=== PATIENT | female | born 1995 | race American Indian/Alaskan Native ===

== ENCOUNTER 2020-01-22 17:43 | Outpatient (REF) | payer OTHER, SELFPAY ==
[2020-01-22 18:20] LABS: COVID-19 Test Positive (Negative)
== END 2020-01-22 17:44 | disposition home or self-care (01) ==
LOC: HO.EMPCOV 17:43
PROVIDERS: Visit Provider Internal Medicine
DX: Z20.828 Contact with and (suspected) exposure to other viral communicable diseases (principal)
CPT/HCPCS: 87635; C9803

== ENCOUNTER 2020-03-18 14:34 | Outpatient (REF) | payer OTHER, SELFPAY ==
[2020-03-18 15:45] LABS: MANUAL DIFF FLAG NO
[2020-03-18 15:51] LABS: Basophils Percent Auto 0.6 % (0-2); Eosinophils Absolute Auto 0.2 X10*3/uL (0.0-0.4); Eosinophils Percent Auto 3.3 % (0-4); Hematocrit 37.3 % (37-47); Hemoglobin 11.7 g/dl (12.0-16.0); Imm Gran Abs Auto 0.02 X10*3/uL (0.00-0.03); Imm Gran Pct Auto 0.3 % (0.0-0.4); Lymphocytes Absolute Auto 2.4 X10*3/uL (1.2-4.9); Lymphocytes Percent Auto 32.8 % (20-40); Mean Corpuscular HGB Conc 31.4 g/dl (31.0-35.0); Mean Corpuscular Hemoglobin 25.9 pg (27.0-33.0); Mean Corpuscular Volume 82.7 fL (80-98); Mean Platelet Volume 10.1 fL (9.4-12.3); Monocytes Absolute Auto 0.4 X10*3/uL (0.1-1.2); Monocytes Percent Auto 6.1 % (2-11); Neutrophils Absolute Auto 4.1 X10*3/uL (2.0-8.3); Neutrophils Percent Auto 56.9 % (45-73); Platelet Count 386 X10*3/uL (160-400); Red Blood Count 4.51 X10*6/uL (4.20-5.50); Red Cell Distribution Width 13.5 % (11.0-16.0); White Blood Count 7.2 X10*3/uL (4.8-10.8)
[2020-03-18 16:11] LABS: Alanine Aminotransferase 15 U/L (0-31); Albumin Level 4.5 g/dL (3.5-5.0); Alkaline Phosphatase 60 U/L (39-117); Anion Gap 10 (12-20); Aspartate Amino Transferase 19 U/L (5-31); Bilirubin Total 0.4 mg/dL (0.0-1.0); Blood Urea Nitrogen 12 mg/dL (9-16); Calcium 9.3 mg/dL (8.4-10.2); Carbon Dioxide 26 mmol/L (22-29); Chloride 106 mmol/L (96-108); Estimated Glomerular Filt Rate > 60; Glucose Fasting 94 mg/dL (60-99); Potassium 4.2 mmol/l (3.3-5.1); Sodium 138 mmol/L (135-145); Total Protein 7.5 g/dL (6.5-8.0)
== END 2020-03-18 14:35 | disposition home or self-care (01) ==
LOC: HO.LAB 14:34
PROVIDERS: PCP Internal Medicine; Visit Provider Internal Medicine
DX: G43.909 Migraine, unspecified, not intractable, without status migrainosus (principal)
CPT/HCPCS: 36415; 80053; 85025

== ENCOUNTER 2021-08-08 08:52 | Outpatient (REF) | payer OTHER, SELFPAY ==
[2021-08-08 09:21] LABS: MANUAL DIFF FLAG NO
[2021-08-08 10:28] LABS: Basophils Percent Auto 0.5 % (0-2); Eosinophils Absolute Auto 0.4 X10*3/uL (0.0-0.4); Eosinophils Percent Auto 6.6 % (0-4); Hematocrit 39.3 % (37.0-47.0); Hemoglobin 12.3 g/dl (12.0-16.0); Imm Gran Abs Auto 0.01 X10*3/uL (0.00-0.03); Imm Gran Pct Auto 0.2 % (0.0-0.4); Lymphocytes Absolute Auto 2.6 X10*3/uL (1.2-4.9); Lymphocytes Percent Auto 43.7 % (20-40); Mean Corpuscular HGB Conc 31.3 g/dl (31.0-35.0); Mean Corpuscular Hemoglobin 26.3 pg (27.0-33.0); Mean Corpuscular Volume 84.2 fL (80.0-98.0); Mean Platelet Volume 10.5 fL (9.4-12.3); Monocytes Absolute Auto 0.5 X10*3/uL (0.1-1.2); Monocytes Percent Auto 7.6 % (2-11); Neutrophils Absolute Auto 2.4 x10*3/uL (2.0-8.3); Neutrophils Percent Auto 41.4 % (45-73); Platelet Count 319 X10*3/uL (160-400); Red Blood Count 4.67 X10*6/uL (4.20-5.50); Red Cell Distribution Width 13.1 % (11.0-16.0); White Blood Count 5.9 X10*3/uL (4.8-10.8)
[2021-08-08 11:02] LABS: Alanine Aminotransferase 17 U/L (0-31); Albumin Level 4.4 g/dL (3.5-5.0); Alkaline Phosphatase 64 U/L (39-117); Anion Gap 10 (12-20); Aspartate Amino Transferase 26 U/L (5-31); Bilirubin Total 0.6 mg/dL (0.0-1.0); Blood Urea Nitrogen 17 mg/dL (9-16); Calcium 9.4 mg/dL (8.4-10.2); Carbon Dioxide 26 mmol/L (22-29); Chloride 106 mmol/L (96-108); Cholesterol 154 mg/dL; Estimated Glomerular Filt Rate > 60; Glucose Fasting 89 mg/dL (60-99); HDL Cholesterol 52 mg/dL; LDL Cholesterol Calculated 95 mg/dl; Potassium 4.4 mmol/L (3.3-5.1); Sodium 138 mmol/L (135-145); Total Protein 7.7 g/dL (6.5-8.0); Triglycerides 37 mg/dL
== END 2021-08-08 08:53 | disposition home or self-care (01) ==
LOC: HO.LAB 08:52
PROVIDERS: PCP Internal Medicine; Visit Provider Internal Medicine
DX: Z00.00 Encounter for general adult medical examination without abnormal findings (principal); D64.9 Anemia, unspecified; J45.30 Mild persistent asthma, uncomplicated; E78.5 Hyperlipidemia, unspecified
CPT/HCPCS: 36415; 80053; 80061; 85025

== ENCOUNTER 2023-12-19 12:53 | Outpatient (AMB) | payer OTHER, SELFPAY ==
[2023-12-19 13:02] VITALS: BP 110/72; BMI 23.6
--- NOTE | 2023-12-19 13:02 | MHC.PC.OV ---
Vital Signs 12/19/23 13:02 Height 5 ft 2 in Weight 129 lb BMI 23.6 BP 110/72 Blood Pressure Location Lt brachial Position Sitting Intake Visit Reasons: annual Intake Note: Patient here for an Annual Physical Exam Councilperson Required: No Accompanied by: Self / Same As Patient Allergies No Known Allergies [No Known Allergies*] Allergy (Verified 12/19/23 13:34) Medication List - Last Reconciled 12/19/23 by Jessica Rogers MD albuterol sulfate 90 mcg/actuation 2 puffs inhalation Q6H PRN 30 days montelukast 10 mg PO BEDTIME Tobacco use date assessed: 12/19/23 Dental Screening Dental Screen Date: 12/19/23 Did you have a dental visit in the last 12 months?: Yes Did you have a dental problem in the last 6 months where you did not have access to dental care?: No Was dental information given to patient?: Patient has dentist HPI HPI Comments History of Present Illness Details This is a 28-year-old female with moderate major depression that comes for her physical exam. I will refer her to psych outpatient services for medication adjustment for her depression. Last Pap smear was over 4 years ago as per patient. She complains of chronic diarrhea and has to have a bowel movement when she feels cold. [facility] Medical History (Updated 12/19/23 @ 14:36 by Jessica Rogers MD) Mild persistent asthma Encounter for physical examination GERD (gastroesophageal reflux disease) Migraines Surgical History History of wisdom tooth extraction Family History Father No problems noted. Mother No problems noted. Maternal Grandmother No problems noted. Paternal Grandmother Diabetes Hypertension Paternal Aunt Hypertension Diabetes Social History Housing: Apartment Alcohol intake: current Alcohol intake frequency: holidays/special occasions only Alcohol type: wine Patient Tobacco Use Status: Never used Tobacco e-Cigarette/Vaping Use: Never Used Second Hand Smoke Exposure: Yes Substance Use Type: Marijuana service: No Current occupational status: employed Current occupational exposures/hazards: No Cognitive needs: No Hearing needs: No Vision needs: Yes Questionnaire PHQ-9 Over the last 2 weeks, how often have you been bothered by any of the following problems? 1. Little interest or pleasure in doing things: more than half the days 2. Feeling down, depressed, or hopeless: more than half the days 3. Trouble falling or staying asleep, or sleeping too much: nearly every day 4. Feeling tired or having little energy: several days 5. Poor appetite or overeating: several days 6. Feeling bad about yourself - or that you are a failure or have let yourself or your family down: more than half the days 7. Trouble concentrating on things, such as reading the newspaper or watching television: several days 8. Moving or speaking so slowly that other people could have noticed. Or the opposite - being so fidgety or restless that you have been moving around a lot more than usual: several days 9. Thoughts that you would be better off or of hurting yourself in some way: several days Total score: 14 Depression Screening Interpretation: Positive (no suicidal thoughts) Depression Screening Follow-up: Existing condition and Follow-up Visit Requested Depression Screening Done: Yes 80852 - PHQ-9 Billing: Yes Source: Developed by Drs. Delvis Ivory, Kim Ibrahim, Tom Bennett and colleagues, with an educational phuong from [employer]. Thrive Questionnaire Date Thrive assessed: 12/19/23 I am a: Patient What is your living situation today?: I have a steady place to live Within the past 12 months, did the food you bought not last and you didn't have the money to get more?: I choose not to answer this question Within the past 12 months, did you worry whether your food would run out before you got money to buy more?: Never true Do you have trouble paying for medicines?: No Do you have trouble getting transportation to medical appointments?: No Do you have trouble paying your heating and electricity bill?: No Do you have trouble taking care of your child, family member or friend?: I choose not to answer this question Do you have trouble with day-to-day activities such as bathing, preparing meals, shopping, managing finances, etc.?: No Are you currently unemployed and looking for a job?: No Are you interested in more education?: Yes Please select the resources that you would like help with: None Currently or been in a relationship where the following occur: I choose not to answer THRIVE Score: 0 AUDIT C Alcohol Use Questionnaire (AUDIT-C) 1. How often do you have a drink containing alcohol?: Never Total Score: 0 Score Reviewed/Action Taken: No DIGNA-7 AMB Questionnaire DIGNA-7 Date DIGNA - 7 assessed: 12/19/23 Feeling nervous, anxious, or on edge: 2 = More than half the days Not being able to stop or control worryin = Nearly every day Worrying too much about different things: 3 = Nearly every day Trouble relaxin = Nearly every day Being so restless that it is hard to sit still: 3 = Nearly every day Becoming easily annoyed or irritable: 2 = More than half the days Feeling afraid as if something awful might happen: 2 = More than half the days Total DIGNA-7 score (0-4 normal; 5-9 mild; 10-14 moderate; 15-21 severe): 18 Source: Developed by Drs. Delvis Ivory, Kim Ibrahim, Tom Bennett and colleagues, with an educational phuong from [employer]. DIGNA-7 Assessment Billing DIGNA-7 Assessment Tool: DIGNA-7 Assessment 41998 Review of Systems Const All systems reviewed & are unremarkable except as noted in HPI and below Card Denies chest pain at rest, Denies chest pain with activity, Denies edema, Denies irregular heart rhythm, Denies claudication, Denies dyspnea, Denies dyspnea on exertion, Denies orthopnea, Denies paroxysmal nocturnal dyspnea and Denies slow heart rate Resp Denies cough, Denies dyspnea and Denies dyspnea on exertion Physical exam (Primary Care) Vital Signs: Last Vital Signs BP 110/72 12/19/23 13:02 BMI result Body Mass Index 23.6 Tobacco/Smoking Status: Tobacco use Status Tobacco use date assessed 12/19/23 12/19/23 13:05 Patient Tobacco Use Status Never used Tobacco 12/19/23 13:05 e-Cigarette/Vaping Use Never Used 12/19/23 13:05 PHQ-9: PHQ-9 Score PHQ-9: Total score 14 12/19/23 13:38 Depression Screening Interpretation: Positive (no suicidal thoughts) Depression Screening Follow-up: Existing condition and Follow-up Visit Requested Thrive Assessment: Date of Thrive Assessment Date Thrive assessed 12/19/23 12/19/23 13:05 Currently or been in a relationship where the following occur: I choose not to answer HENDE Head: Yes normal to inspection, Yes normocephalic and Yes atraumatic Ears: external ears normal Eyes General: appearance normal, both eyes and all related structures Eyelids: Yes eyelids normal Conjunctivae: conjunctivae normal Neck Neck: Yes normal visual inspection and Yes supple Resp Effort & Inspection: normal respiratory effort Auscultation: clear to auscultation bilaterally Cardio Jugular venous distension: no JVD Rate: regular rate Rhythm: regular rhythm Heart sounds: S1 normal heart sound present and S2 normal heart sound present GI Inspection: Yes normal to inspection Palpation (GI): Soft to palpation and nontender Auscultation: normal bowel sounds Skin General skin exam: no rashes or lesions noted Neuro General: no focal motor deficits Extrem General: Yes full ROM Psych Appearance: grossly normal Office Procedures Flu Questionnaire Does the patient have a severe egg allergy?: No Immunizations Fluarix Triv [id number] (PF) 45 mcg (15 mcg x 3)/0.5 mL IM syringe Performing Provider: Jessica Rogers MD [place] [facility] [place] [facility] [place] [facility] Documented (not given) by: TODD Whitehead on 12/19/23 13:10 Reason Not Given: Patient Refused Coding Level of Care Code Est Pt Level 3 (64107) Est Pt Prev Care 18-39y(74064) Diagnoses Encounter for physical examination Z00.00 Moderate major depression F32.1 Diarrhea, unspecified type R19.7 Diarrhea type: unspecified type Additional Codes DIGNA-7 Assessment Billing - DIGNA-7 Assessment Tool: DIGNA-7 Assessment 16842 ([id number]) Time Spent (min) 32 Assessment & Plan Assessment & Plan (1) Encounter for physical examination: Code(s): Z00.00 - Encounter for general adult medical examination without abnormal findings Category: Medical Plan: Repeat in a year. (2) Moderate major depression: Code(s): F32.1 - Major depressive disorder, single episode, moderate Category: Medical Plan: Referred to psych outpatient services. (3) Diarrhea: Code(s): R19.7 - Diarrhea, unspecified Category: Medical Qualifiers: Diarrhea type: unspecified type Qualified Code(s): R19.7 - Diarrhea, unspecified Plan: Labs ordered. Orders: Orders Influenza [id number] Immunization Today Z23 - Encounter for immunization Celiac Disease Panel Today R19.7 - Diarrhea, unspecified Complete Blood Count Auto Diff Today G43.909 - Migraine, unspecified, not intractable, without status migrainosus Comprehensive [place]. Panel Fast Today G43.909 - Migraine, unspecified, not intractable, without status migrainosus Thyroid Stimulating Hormone Today R19.7 - Diarrhea, unspecified Lipid Panel Today Z00.00 - Encounter for general adult medical examination without abnormal findings Referrals [facility] Referral Z12.4 - Encounter for screening for malignant neoplasm of cervix Psychiatry Outpatient Consultation Service F32.1 - Major depressive disorder, single episode, moderate Medications: Refilled albuterol sulfate 90 mcg/actuation 2 puffs inhalation Q6H PRN 6.7 grams 0RF shortness of breath or wheezing 30 days J45.30 - Mild persistent asthma, uncomplicated
== END 2023-12-19 13:45 | disposition home or self-care (01) ==
PROVIDERS: PCP Internal Medicine; Visit Provider Internal Medicine
DX: Z00.00 Encounter for general adult medical examination without abnormal findings (principal); R19.7 Diarrhea, unspecified; F32.1 Major depressive disorder, single episode, moderate

== ENCOUNTER → 2023-12-19 12:53 | Outpatient (BNVA) | payer OTHER, SELFPAY | PROVIDERS: PCP Internal Medicine; Visit Provider Internal Medicine | DX: Z00.01 Encounter for general adult medical examination with abnormal findings (principal); F32.1 Major depressive disorder, single episode, moderate; R19.7 Diarrhea, unspecified | CPT/HCPCS: 90471; 96127; 99212; 99395 ==

== ENCOUNTER 2024-01-20 12:57 | Outpatient (AMB) | payer OTHER, SELFPAY ==
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
== END 2024-01-20 14:02 | disposition home or self-care (01) ==
LOC: HO.HOP 12:57
PROVIDERS: PCP Internal Medicine; Visit Provider Clinical Nurse Specialist Psychiatric/Mental Health
DX: F41.1 Generalized anxiety disorder (principal); F41.0 Panic disorder [episodic paroxysmal anxiety]
CPT/HCPCS: 90792

== ENCOUNTER → 2024-01-20 12:57 | Outpatient (BNVA) | payer OTHER, SELFPAY | PROVIDERS: PCP Internal Medicine; Visit Provider Clinical Nurse Specialist Psychiatric/Mental Health | DX: F41.1 Generalized anxiety disorder (principal); F41.0 Panic disorder [episodic paroxysmal anxiety]; F32.A Depression, unspecified; Z71.89 Other specified counseling | CPT/HCPCS: 90792 ==

== ENCOUNTER 2024-01-31 21:53 | Emergency (ER) | payer OTHER, SELFPAY ==
--- NOTE | ~2024-01-31 | US_ITS ---
EXAMINATION: US PELVIS CLINICAL INFORMATION: Vaginal bleeding. Pain. COMPARISON: None available. TECHNIQUE: Ultrasound of the pelvis is performed using both transabdominal and transvaginal transducers along with Doppler. Transvaginal imaging is performed due to inadequate visualization transabdominally. FINDINGS: Uterus: The uterus is anteverted and measures 3.7 x 2.3 x 1.7 cm. The double wall endometrial thickness is 0.7 mm. The uterus is smooth in contour and has normal myometrial echogenicity. No visible fibroid. Adnexa: Both ovaries are visualized. There is normal color flow to the adnexa. There is no ovarian torsion. There is no pelvic ascites or fluid collection. Right ovary measures 3.5 x 2.3 x 1.7 cm. Left ovary measures 4.7 x 2.3 x 3.3 cm. There is a small amount of free fluid within the cul-de-sac US/US pelvic and transvaginal IMPRESSION: 1. Small amount of free fluid within the cul-de-sac. 2. Otherwise unremarkable examination. Electronically signed by: Humphrey Wilder MD 02/01/2024 01:39 AM EST
[2024-01-31 22:00] VITALS: BP 101/66; PULSE 78; RESP 18; TEMP 36.7; O2SAT 100; BMI 23.9
[2024-01-31 22:24] LABS: MANUAL DIFF FLAG NO
[2024-01-31 22:25] LABS: Basophils Percent Auto 0.4 % (0-2); Eosinophils Absolute Auto 0.4 X10*3/uL (0.0-0.4); Eosinophils Percent Auto 3.6 % (0-4); Hematocrit 37.8 % (37.0-47.0); Hemoglobin 12.6 g/dl (12.0-16.0); Imm Gran Abs Auto 0.02 X10*3/uL (0.00-0.03); Imm Gran Pct Auto 0.2 % (0.0-0.4); Lymphocytes Absolute Auto 2.4 X10*3/uL (1.2-4.9); Lymphocytes Percent Auto 25.2 % (20-40); Mean Corpuscular HGB Conc 33.3 g/dl (31.0-35.0); Mean Corpuscular Hemoglobin 26.9 pg (27.0-33.0); Mean Corpuscular Volume 80.6 fL (80.0-98.0); Mean Platelet Volume 9.8 fL (9.4-12.3); Monocytes Absolute Auto 0.9 X10*3/uL (0.1-1.2); Monocytes Percent Auto 9.3 % (2-11); Neutrophils Absolute Auto 5.9 x10*3/uL (2.0-8.3); Neutrophils Percent Auto 61.3 % (45-73); Platelet Count 296 X10*3/uL (160-400); Red Blood Count 4.69 X10*6/uL (4.20-5.50); Red Cell Distribution Width 13.3 % (11.0-16.0); White Blood Count 9.7 X10*3/uL (4.8-10.8)
[2024-01-31 22:50] LABS: Alanine Aminotransferase 19 U/L (0-31); Albumin Level 4.2 g/dL (3.5-5.0); Alkaline Phosphatase 54 U/L (39-117); Anion Gap 10 (12-20); Aspartate Amino Transferase 28 U/L (5-31); Bilirubin Total 0.5 mg/dL (0.0-1.0); Blood Urea Nitrogen 17 mg/dL (9-16); Calcium 8.9 mg/dL (8.4-10.2); Carbon Dioxide 23 mmol/L (22-29); Chloride 109 mmol/L (96-108); Creatinine Clr Calc Pharmacy 87.9; Estimated Glomerular Filt Rate > 60; Glucose Random 100 mg/dL (60-115); Lipase 26 U/L (8-78); Potassium 3.5 mmol/L (3.3-5.1); Sodium 138 mmol/L (135-145); Total Protein 7.3 g/dL (6.5-8.0)
[2024-01-31 22:51] LABS: HCG Quantitative < 2 mIU/mL
--- NOTE | 2024-01-31 23:25 | ED_ITS ---
HPI - General Adult General Chief complaint: Abdominal Pain Stated complaint: abd/low back pain Time Seen by Provider: 01/31/24 23:24 History of Present Illness ED Provider: Digna RENTERIA narrative: The patient is a 28-year-old female who was here with a complaint of left lower abdominal pain. She says that she has a history of getting significant left lower abdominal pain when she has her menses. She says that she usually has pain on the day before her menses which is much worse when her menses actually begins. She says that she had pain yesterday and then developed her period today. She says the pain is much worse when she has a bowel movement. She says the pain felt so bad today she felt she had to come to the hospital because it felt as though something might be wrong. She says she has had problems with severe menstrual discomfort for many months or possibly even years. She has an appointment with a structural shop helper in 2 months to discuss these symptoms but today she did not feel she could wait. No fever, sweats, chills. No nausea or vomiting. The patient says that she has never been . Related Data Home Medications ?Medication ?Instructions ?Recorded ?Confirmed montelukast 10 mg tablet 10 mg PO BEDTIME 12/19/23 01/20/24 Previous Rx's ?Medication ?Instructions ?Recorded albuterol sulfate 90 mcg/actuation 2 puff inhalation Q6H PRN 12/19/23 aerosol inhaler shortness of breath or wheezing 30 days #6.7 grams amitriptyline 10 mg tablet 10 mg PO BEDTIME #30 tabs 01/20/24 ibuprofen 600 mg tablet 600 mg PO Q6H PRN pain #14 tabs 02/01/24 Allergies Allergy/AdvReac Type Severity Reaction Status Date / Time No Known Allergies Allergy Verified 01/31/24 22:04 [No Known Allergies*] Review of Systems 2 Review of Systems: Yes all other systems are reviewed and are negative PMFSH Past Medical History Medical History Mild persistent asthma Encounter for physical examination GERD (gastroesophageal reflux disease) Migraines Surgical History History of wisdom tooth extraction Family History Family History Father No problems noted. Mother No problems noted. Maternal Grandmother No problems noted. Paternal Grandmother Diabetes Hypertension Paternal Aunt Hypertension Diabetes Social History Social History Housing: Apartment Alcohol intake: current Alcohol intake frequency: holidays/special occasions only Alcohol type: wine Patient Tobacco Use Status: Never used Tobacco Smoked in Last 30 Days: No e-Cigarette/Vaping Use: Never Used Second Hand Smoke Exposure: Yes Substance Use Type: Marijuana Advance Directives: No Advance Directives Information Provided: Yes Do you have a plan to hurt others: No Plan service: No Current occupational status: employed Current occupational exposures/hazards: No Cognitive needs: No Hearing needs: No Vision needs: Yes Physical Exam ED Vital Signs: Vital Signs - 24 hr 01/31/24 22:00 01/31/24 23:51 Temperature 98.1 F 98.0 F Pulse Rate 78 70 Respiratory Rate 18 18 Blood Pressure 101/66 89/53 L Pulse Oximetry 100 97 Oxygen Delivery Method Room Air Room Air BMI result Body Mass Index 23.9 Const Other: The patient has a healthy looking 28-year-old. She is awake and alert, pleasant cooperative. HENMT Other: Face is symmetrical. Mucous membranes moist. Eyes General: appearance normal, both eyes and all related structures Neck Neck: Yes full ROM Resp Effort & Inspection: normal respiratory effort Auscultation: clear to auscultation bilaterally Cardio Rate: regular rate Rhythm: regular rhythm Heart sounds: S1 normal heart sound present and S2 normal heart sound present GI Other: The abdomen is flat and soft. She has some mild left lower quadrant tenderness without rebound or guarding General: Yes no CVA tenderness Back/Spine/Pelvis Back: no CVA tenderness Skin Other: Skin is dry and unremarkable Neuro Other: The patient is awake, alert, pleasant, cooperative. Mental status is normal. Demeanor is pleasant. Cranial nerves are grossly intact. She moves her extremities normally and appropriately. Extrem Other: No peripheral edema Medications Administered Discontinued Medications Generic Name Dose Route Start Last Admin Trade Name Freq PRN Reason Stop Dose Admin Ketorolac Tromethamine 30 mg 01/31/24 23:32 01/31/24 23:56 Ketorolac Tromethamine 30 Mg/Ml Vial IM 12/06/24 23:33 30 mg ONCE ONE Administration Medical Decision Making Medical Decision Making [facility] Narrative: The patient is a 28-year-old female presents for evaluation of left lower quadrant pain that she describes as pain she has had many times before with menses. She describes a long history of significant menstrual symptoms. She has an appointment with the Gynecology office in 2 months and today the pain was so bad she felt she had to come to the emergency room. Her workup in the emergency room today is essentially negative. test is negative. Labs are negative. Ultrasound of the pelvis is unremarkable. She was given an injection of ketorolac which seemed to help. She will be prescribed ibuprofen and advised to try to follow up with the Gynecology office as soon as possible Lab Data 01/31/24 22:20 01/31/24 22:20 Labs: Lab Results 01/31/24 02/01/24 Range/Units 22:20 01:20 WBC 9.7 (4.8-10.8) X10*3/uL RBC 4.69 (4.20-5.50) X10*6/uL Hgb 12.6 (12.0-16.0) g/dl Hct 37.8 (37.0-47.0) % MCV 80.6 (80.0-98.0) fL MCH 26.9 L (27.0-33.0) pg MCHC 33.3 (31.0-35.0) g/dl RDW 13.3 (11.0-16.0) % Plt Count 296 (160-400) X10*3/uL MPV 9.8 (9.4-12.3) fL Immature Gran % (Auto) 0.2 (0.0-0.4) % Neut % (Auto) 61.3 (45-73) % Lymph % (Auto) 25.2 (20-40) % [place] % (Auto) 9.3 (2-11) % Eos % (Auto) 3.6 (0-4) % Baso % (Auto) 0.4 (0-2) % Lymph # (Auto) 2.4 (1.2-4.9) X10*3/uL [place] # (Auto) 0.9 (0.1-1.2) X10*3/uL Eos # (Auto) 0.4 (0.0-0.4) X10*3/uL Baso # (Auto) 0.0 (0.0-0.2) X10*3/uL Abs Immat Gran (auto) 0.02 (0.00-0.03) X10*3/uL Absolute Neuts (auto) 5.9 (2.0-8.3) x10*3/uL Absolute Nucleated RBC 0.000 (0.0-0.012) X10*3/uL Nucleated RBC % (auto) 0.0 (0.0-0.2) /100WBC Sodium 138 (135-145) mmol/L Potassium 3.5 (3.3-5.1) mmol/L Chloride 109 H (96-108) mmol/L Carbon Dioxide 23 (22-29) mmol/L Anion Gap 10 L (12-20) BUN 17 H (9-16) mg/dL Creatinine 0.76 (0.5-1.4) mg/dL Estim Creat Clear Calc 87.9 Estimated GFR > 60 Random Glucose 100 (60-115) mg/dL Calcium 8.9 (8.4-10.2) mg/dL Total Bilirubin 0.5 (0.0-1.0) mg/dL AST 28 (5-31) U/L ALT 19 (0-31) U/L Alkaline Phosphatase 54 (39-117) U/L Total Protein 7.3 (6.5-8.0) g/dL Albumin 4.2 (3.5-5.0) g/dL Lipase 26 (8-78) U/L Beta HCG, Quant < 2 mIU/mL Urine Color Yellow Urine Appearance Clear Urine pH 6.0 (5.0-9.0) Ur Specific [place] 1.025 (1.005-1.025) Urine Protein Trace (Neg-Trace) mg/dL Urine Glucose (UA) Negative (Negative) mg/dL Urine Ketones Trace (Negative) mg/dL Urine Blood Large (3+) H (Negative) Urine Nitrite Negative (Negative) Ur Leukocyte Esterase Small (1+) H (Negative) Urine RBC >20 H (0-2) /HPF Urine WBC 11-20 H (0-5) /HPF Ur Squamous Epith Cells 0-2 (0-2) /HPF Urine Bacteria None Seen (None Seen) Hyaline Casts 0-2 (0-2) /LPF Discharge Plan Discharge Clinical Impression: Left lower quadrant abdominal pain, Dysmenorrhea Patient Disposition: Home, Self-Care Additional Instructions: Your blood testing is reassuring. The official results of your ultrasound are not yet available but I think it is unlikely the results will show any acutely dangerous process. If there is any concerning finding on your ultrasound I will contact you at [phone]. I have sent a prescription for ibuprofen to your pharmacy that you may use as needed for pain. You may also use [id number] acetaminophen (Tylenol). You may take two 500 mg tablets up to 3 times a day as needed for pain. For more definitive care you will need to be seen at the Gynecology office. You may also stay in touch with your primary care doctor for additional advice. Return to the emergency room if significantly worse. Prescriptions: New ibuprofen 600 mg tablet 600 mg PO Q6H PRN (Reason: pain) Qty: 14 0RF No Action albuterol sulfate 90 mcg/actuation HFA aerosol inhaler 2 puff inhalation Q6H PRN (Reason: shortness of breath or wheezing) 30 Days Qty: 6.7 0RF montelukast 10 mg tablet 10 mg PO BEDTIME amitriptyline 10 mg tablet 10 mg PO BEDTIME Qty: 30 1RF Ref[place]: [facility] [place] [Provider Group] (Dysmenorrhea) Jessica Doyle MD [Primary Care Provider] - (Dysmenorrhea) Print Language: Kazakh
[2024-01-31 23:51] VITALS: BP 89/53; PULSE 70; RESP 18; TEMP 36.7; O2SAT 97
[2024-01-31] MEDS: Ketorolac Tromethamine 30 MG/ML VIAL IM (23:56)
[2024-02-01 01:27] LABS: Appearance Urine Clear; Color Urine Yellow; Glucose Urine UA Negative (Negative); Leukocyte Esterase Urine Small (1+) (Negative); Nitrite Urine Negative (Negative); Specific Gravity - Urine 1.025 (1.005-1.025); UMIC TRIGGER UACC YES; Urine Blood Large (3+) (Negative); Urine Ketones Trace mg/dL (Negative); Urine Protein Trace mg/dL (Neg-Trace)
[2024-02-01 01:33] LABS: Bacteria Urine None Seen (None Seen); Hyaline Casts Urine 0-2 /LPF (0-2); RBC Urine >20 /HPF (0-2); Squamous Epithelial Cell Urine 0-2 /HPF (0-2); UACC Culture Trigger YES
[2024-02-01 01:50] VITALS: BP 95/53; PULSE 66; RESP 16; TEMP 36.9; O2SAT 97
[2024-02-01 01:51] VITALS: BP 95/53; PULSE 66; RESP 16; TEMP 36.9; O2SAT 97
== END 2024-02-01 01:54 | disposition home or self-care (01) ==
PROVIDERS: Emergency Provider Emergency Medicine; PCP Internal Medicine
DX: R10.32 Left lower quadrant pain (principal); N94.6 Dysmenorrhea, unspecified
CPT/HCPCS: 36415; 76830; 76856; 80053; 81001; 83690; 84702; 85025; 87086; 96372; 99284; J1885

== ENCOUNTER 2024-02-03 08:16 | Outpatient (REF) | payer OTHER, SELFPAY ==
[2024-02-03 08:31] LABS: MANUAL DIFF FLAG NO
[2024-02-03 09:19] LABS: Basophils Absolute Auto 0.1 X10*3/uL (0.0-0.2); Basophils Percent Auto 0.7 % (0-2); Eosinophils Absolute Auto 0.5 X10*3/uL (0.0-0.4); Eosinophils Percent Auto 6.8 % (0-4); Hematocrit 40.1 % (37.0-47.0); Imm Gran Abs Auto 0.01 X10*3/uL (0.00-0.03); Imm Gran Pct Auto 0.1 % (0.0-0.4); Lymphocytes Absolute Auto 2.8 X10*3/uL (1.2-4.9); Lymphocytes Percent Auto 40.9 % (20-40); Mean Corpuscular HGB Conc 32.4 g/dl (31.0-35.0); Mean Corpuscular Hemoglobin 26.6 pg (27.0-33.0); Mean Platelet Volume 10.3 fL (9.4-12.3); Monocytes Absolute Auto 0.5 X10*3/uL (0.1-1.2); Monocytes Percent Auto 7.5 % (2-11); Neutrophils Absolute Auto 3.1 x10*3/uL (2.0-8.3); Platelet Count 323 X10*3/uL (160-400); Red Blood Count 4.89 X10*6/uL (4.20-5.50); Red Cell Distribution Width 13.2 % (11.0-16.0)
[2024-02-03 09:43] LABS: Alanine Aminotransferase 16 U/L (0-31); Albumin Level 4.2 g/dL (3.5-5.0); Alkaline Phosphatase 55 U/L (39-117); Anion Gap 9 (12-20); Aspartate Amino Transferase 27 U/L (5-31); Bilirubin Total 0.4 mg/dL (0.0-1.0); Blood Urea Nitrogen 9 mg/dL (9-16); Carbon Dioxide 25 mmol/L (22-29); Chloride 108 mmol/L (96-108); Cholesterol 135 mg/dL (<200); Estimated Glomerular Filt Rate > 60; Glucose Fasting 95 mg/dL (60-99); HDL Cholesterol 46 mg/dL (>40); LDL Cholesterol Calculated 81 mg/dL (<100); Potassium 3.6 mmol/L (3.3-5.1); Sodium 138 mmol/L (135-145); Total Protein 7.8 g/dL (6.5-8.0); Triglycerides 44 mg/dL (<150)
[2024-02-03 10:10] LABS: Folate 13.2 ng/mL (> or = 4.0); Vitamin B12 1014 pg/mL (200-900)
[2024-02-04 20:28] LABS: Immunoglobulin A 358 mg/dL (47-310); Transglutaminase IgA <1.0 U/mL
[2024-02-08 13:35] LABS: Vitamin B1 9 nmol/L (8-30)
[2024-02-08 15:54] LABS: Vitamin B6 4.9 ng/mL (2.1-21.7)
== END 2024-02-03 08:17 | disposition home or self-care (01) ==
LOC: HO.LAB 08:16
PROVIDERS: Clinical Nurse Specialist Psychiatric/Mental Health; PCP Internal Medicine; Visit Provider Internal Medicine
DX: Z00.00 Encounter for general adult medical examination without abnormal findings (principal); R19.7 Diarrhea, unspecified; G43.909 Migraine, unspecified, not intractable, without status migrainosus; F41.9 Anxiety disorder, unspecified
CPT/HCPCS: 36415; 80053; 80061; 82607; 82746; 82784; 84207; 84425; 84443; 85025; 86364

== ENCOUNTER 2024-02-14 16:28 | Outpatient (REF) | payer OTHER, SELFPAY | END 2024-02-14 16:29 | disposition home or self-care (01) | LOC: HO.US 16:28 | PROVIDERS: PCP Internal Medicine; Visit Provider Internal Medicine | DX: R10.2 Pelvic and perineal pain (principal) | CPT/HCPCS: 76830; 76856 ==

== ENCOUNTER → 2024-02-14 16:29 | Outpatient (BNV) | payer OTHER, SELFPAY | PROVIDERS: PCP Internal Medicine; Visit Provider Radiology Diagnostic Radiology | DX: N83.02 Follicular cyst of left ovary (principal); N83.291 Other ovarian cyst, right side | CPT/HCPCS: 76830; 76856 ==

== ENCOUNTER → 2024-03-03 08:12 | Outpatient (BNV) | payer OTHER, SELFPAY | PROVIDERS: Emergency Provider Emergency Medicine; PCP Internal Medicine; Visit Provider Radiology Diagnostic Radiology | DX: R10.32 Left lower quadrant pain (principal) | CPT/HCPCS: 74177 ==

== ENCOUNTER 2024-03-09 08:49 | Outpatient (REF) | payer OTHER, SELFPAY ==
[2024-03-10 15:39] LABS: Gliadin Deamidated IgG Ab <1.0 U/mL; Immunoglobulin A 378 mg/dL (47-310); Transglutaminase Ab IgG <1.0 U/mL; Transglutaminase IgA <1.0 U/mL
== END 2024-03-09 08:50 | disposition home or self-care (01) ==
LOC: HO.LAB 08:49
PROVIDERS: PCP Internal Medicine; Visit Provider Internal Medicine
DX: R10.9 Unspecified abdominal pain (principal); F32.1 Major depressive disorder, single episode, moderate; J45.30 Mild persistent asthma, uncomplicated; Z28.21 Immunization not carried out because of patient refusal
CPT/HCPCS: 36415; 82784; 86258; 86364; 90471; 96127; 99212

== ENCOUNTER 2024-03-09 08:49 | Outpatient (AMB) | payer OTHER, SELFPAY ==
--- NOTE | 2024-03-09 09:19 | A.OFFPC_ITS ---
Vital Signs 03/09/24 09:22 Height 5 ft 2 in Weight 128 lb BMI 23.4 BP 108/70 Blood Pressure Location Lt brachial Position Sitting Intake Visit Reasons: ED follow up abdominal pain/ GI referral request Curb Attendant Required: No Accompanied by: Self / Same As Patient Allergies No Known Allergies [No Known Allergies*] Allergy (Verified 03/09/24 10:07) Medication List - Last Reconciled 03/09/24 by Jessica Rogers MD albuterol sulfate 90 mcg/actuation 2 puffs inhalation Q6H PRN 30 days montelukast 10 mg PO BEDTIME Tobacco use date assessed: 03/09/24 Dental Screening Dental Screen Date: 03/09/24 Did you have a dental visit in the last 12 months?: Yes Did you have a dental problem in the last 6 months where you did not have access to dental care?: No Was dental information given to patient?: Patient has dentist HPI HPI Comments History of Present Illness Details The patient is a 28-year-old female presenting with persistent abdominal pain, primarily associated with her menstrual cycle, which began approximately one year ago. The pain is described as severe, non-menstrual type, and exacerbated during menstruation. The patient reports frequent bowel movements and heightened cold sensitivity, necessitating urgent bathroom use when exposed to cold environments. An ultrasound revealed a dominant follicle on the left ovary, which was deemed non-contributory to her symptoms. She attempted conception for a year without success. Laboratory results showed mildly dec reased hemoglobin levels, and the patient exhibits sensitivity and abdominal bloating with gluten intake. Recently, she perceives severe abdominal distension post-gluten consumption. The patient denies any specific dietary correlation but acknowledges irregular bowel movements with diarrhea when consuming gluten-rich foods. Prior evaluations for the abdominal pain have not confirmed a definitive diagnosis. She also has moderate major depression and mild persistent asthma. For depression declines treatment. For asthma she use rescue inhaler every 3 months or less. [facility] Medical History (Updated 03/09/24 @ 10:13 by Jessica Rogers MD) Mild persistent asthma Encounter for physical examination GERD (gastroesophageal reflux disease) Migraines Surgical History History of wisdom tooth extraction Family History Father No problems noted. Mother No problems noted. Maternal Grandmother No problems noted. Paternal Grandmother Diabetes Hypertension Paternal Aunt Hypertension Diabetes Social History Housing: Apartment Alcohol intake: current Alcohol intake frequency: a few times a month Alcohol type: wine Patient Tobacco Use Status: Never used Tobacco e-Cigarette/Vaping Use: Never Used Second Hand Smoke Exposure: Yes Substance Use Type: Marijuana service: No Current occupational status: employed Current occupational exposures/hazards: No Cognitive needs: No Hearing needs: No Vision needs: Yes Questionnaire PHQ-9 Over the last 2 weeks, how often have you been bothered by any of the following problems? 1. Little interest or pleasure in doing things: not at all 2. Feeling down, depressed, or hopeless: not at all 3. Trouble falling or staying asleep, or sleeping too much: several days 4. Feeling tired or having little energy: several days 5. Poor appetite or overeating: several days 6. Feeling bad about yourself - or that you are a failure or have let yourself or your family down: not at all 7. Trouble concentrating on things, such as reading the newspaper or watching television: nearly every day 8. Moving or speaking so slowly that other people could have noticed. Or the opposite - being so fidgety or restless that you have been moving around a lot more than usual: several days 9. Thoughts that you would be better off or of hurting yourself in some way: not at all Total score: 7 Depression Screening Interpretation: Positive (no suicidal thoughts) Depression Screening Follow-up: Existing condition and Follow-up Visit Requested Depression Screening Done: Yes 35279 - PHQ-9 Billing: Yes Source: Developed by Drs. Delvis Ivory, Kim Ibrahim, Tom Bennett and colleagues, with an educational phuong from [employer]. Thrive Questionnaire Date Thrive assessed: 03/09/24 I am a: Patient What is your living situation today?: I have a steady place to live Within the past 12 months, did the food you bought not last and you didn't have the money to get more?: I choose not to answer this question Within the past 12 months, did you worry whether your food would run out before you got money to buy more?: Never true Do you have trouble paying for medicines?: No Do you have trouble getting transportation to medical appointments?: No Do you have trouble paying your heating and electricity bill?: No Do you have trouble taking care of your child, family member or friend?: I choose not to answer this question Do you have trouble with day-to-day activities such as bathing, preparing meals, shopping, managing finances, etc.?: No Are you currently unemployed and looking for a job?: No Are you interested in more education?: Yes Please select the resources that you would like help with: None Currently or been in a relationship where the following occur: I choose not to answer THRIVE Score: 0 AUDIT C Alcohol Use Questionnaire (AUDIT-C) 1. How often do you have a drink containing alcohol?: Never Total Score: 0 Score Reviewed/Action Taken: No DIGNA-7 AMB Questionnaire DIGNA-7 Date DIGNA - 7 assessed: 03/09/24 Feeling nervous, anxious, or on edge: 1 = Several days Not being able to stop or control worryin = Not at all Worrying too much about different things: 3 = Nearly every day Trouble relaxin = Nearly every day Being so restless that it is hard to sit still: 1 = Several days Becoming easily annoyed or irritable: 1 = Several days Feeling afraid as if something awful might happen: 0 = Not at all Total DIGNA-7 score (0-4 normal; 5-9 mild; 10-14 moderate; 15-21 severe): 9 Source: Developed by Drs. Delvis Ivory, Kim Ibrahim, Tom Bennett and colleagues, with an educational phuong from [employer]. DIGNA-7 Assessment Billing DIGNA-7 Assessment Tool: DIGNA-7 Assessment 59900 Review of Systems Const Details: - Gastrointestinal: Reports bloating when consuming gluten; denies constipation. - Genitourinary: Denies other urinary symptoms apart from occasional hematuria. - Menstrual/Pelvic: Reports increased pain during her menstrual periods. Physical exam (Primary Care) Vital Signs: Last Vital Signs BP 108/70 03/09/24 09:22 BMI result Body Mass Index 23.4 Tobacco/Smoking Status: Tobacco use Status Tobacco use date assessed 03/09/24 03/09/24 09:28 Patient Tobacco Use Status Never used Tobacco 03/09/24 09:28 e-Cigarette/Vaping Use Never Used 03/09/24 09:28 PHQ-9: PHQ-9 Score PHQ-9: Total score 7 03/09/24 10:10 Depression Screening Interpretation: Positive (no suicidal thoughts) Depression Screening Follow-up: Existing condition and Follow-up Visit Requested Thrive Assessment: Date of Thrive Assessment Date Thrive assessed 03/09/24 03/09/24 09:28 Currently or been in a relationship where the following occur: I choose not to answer Const Other: General: No confusion Respiratory: Normal respiratory effort, clear to auscultation bilaterally Cardiovascular: No jugular venous distension, regular rate, regular rhythm, S1 normal heart sound present and S2 normal heart sound present GI: Normal to inspection, Soft to palpation and nontender, normal bowel sounds Extremities: Full ROM Psychology: Mild depression noted (PHQ-9 score of 7) Office Procedures Flu Questionnaire Does the patient have a severe egg allergy?: No Immunizations Fluarix Triv [id number] (PF) 45 mcg (15 mcg x 3)/0.5 mL IM syringe Performing Provider: Jessica Rogers MD [facility] [place] [facility] Documented (not given) by: TODD Whitehead on 03/09/24 09:29 Reason Not Given: Patient Refused Coding Level of Care Code Est Pt Level 3 (94360) Complex EM visit Add On G2211 Diagnoses Abdominal pain R10.9 Moderate major depression F32.1 Mild persistent asthma J45.30 Additional Codes DIGNA-7 Assessment Billing - DIGNA-7 Assessment Tool: DIGNA-7 Assessment 07203 ([id number]) PHQ-9 - 35753 - PHQ-9 Billing: Yes ([id number]) Time Spent (min) 19 Assessment & Plan Assessment & Plan (1) Abdominal pain: Code(s): R10.9 - Unspecified abdominal pain Category: Medical (2) Moderate major depression: Code(s): F32.1 - Major depressive disorder, single episode, moderate Category: Medical (3) Mild persistent asthma: Code(s): J45.30 - Mild persistent asthma, uncomplicated Category: Medical Plan - Refer patient to gastroenterology for further evaluation of abdominal pain and suspected celiac disease. - Laboratory testing to screen for celiac disease including serologic markers. - Advise on dietary modifications to assess potential gluten sensitivity. - Monitor hemoglobin levels and consider iron supplements if iron deficiency is confirmed. - Follow-up regarding the management of depressive symptoms, potentially adjusting current therapeutic regimen. Patient was informed and verbally consented to the use of an ambient scribe for clinic note documentation during this visit. I discussed with the patient the possibility of celiac disease and gluten sensitivity, considering her symptoms of abdominal pain and bloating upon gluten consumption. I explained the rationale for referral to gastroenterology and the need for further testing to confirm this diagnosis. We discussed current iron levels and potential supplementation. The patient was informed about the function of ovarian follicles and reassured about the non-threatening nature of the identified dominant follicle. Detailed dietary observation was recommended to identify any specific food intolerance. I advised her that any significant symptom worsening or new symptoms should prompt an earlier follow-up. Orders: Orders Influenza [id number] Immunization Today Z23 - Encounter for immunization Celiac Diagnostic Gliadin TTG Today R10.9 - Unspecified abdominal pain Referrals Gastroenterology Referral R10.9 - Unspecified abdominal pain Medications: Refilled albuterol sulfate 90 mcg/actuation 2 puffs inhalation Q6H PRN 6.7 grams 0RF shortness of breath or wheezing 30 days J45.30 - Mild persistent asthma, uncomplicated Patient Instructions: - Follow dietary modifications to monitor and evaluate gluten sensitivity, noting any symptoms after consuming gluten products. - Attend the referral appointment with gastroenterology for further evaluation. - Monitor menstrual cycle and associated symptoms, reporting any significant changes. - Maintain regular mental health follow-ups to address depressive symptoms.
[2024-03-09 09:22] VITALS: BP 108/70; BMI 23.4
== END 2024-03-09 10:23 | disposition home or self-care (01) ==
PROVIDERS: PCP Internal Medicine; Visit Provider Internal Medicine
DX: R10.9 Unspecified abdominal pain (principal); F32.1 Major depressive disorder, single episode, moderate; J45.30 Mild persistent asthma, uncomplicated; Z23 Encounter for immunization

== ENCOUNTER 2024-03-28 21:36 | Emergency (ER) | payer OTHER, SELFPAY ==
--- NOTE | 2024-03-28 | ECG_ITS ---
Test Reason : CP Blood Pressure : */* mmHG Vent. Rate : 82 BPM Atrial Rate : 82 BPM P-R Int : 176 ms QRS Dur : 66 ms QT Int : 370 ms P-R-T Axes : 64 77 16 degrees QTcB Int : 432 ms Normal sinus rhythm Normal ECG No previous ECGs available Referred By: Generic ED Physician Electronically Signed By: CARL BARROSO
--- NOTE | ~2024-03-28 | XR_ITS ---
CLINICAL HISTORY: sob 1 view chest x-ray. Comparison: CR/MA/SR - CHEST 1 VIEW - 06/21/19 21:46 EDT Findings: No consolidation, pneumothorax, or effusion. Heart size normal. Impression: 1. No acute cardiopulmonary process. No focal pulmonary consolidation. This document has been electronically signed by: Naren Plasencia MD on 03/28/2024 22:24:47
[2024-03-28 21:47] VITALS: BP 109/70; PULSE 90; RESP 22; TEMP 36.7; O2SAT 98; BMI 23.0
--- NOTE | 2024-03-28 21:55 | PC.NURSE ---
[place] [facility] [place] [facility], Paige AGENCY MANAGER and RT notified.
--- NOTE | 2024-03-28 21:56 | ED_ITS ---
HPI - Asthma General Chief Complaint: Asthma Stated Complaint: chest pain,sob,cough Time Seen by Provider: 03/28/24 21:55 Source: patient, RN notes reviewed and old records reviewed Mode of arrival: ambulatory Limitations: no limitations History of Present Illness ED Provider: Julio César RENTERIA Narrative: Patient is a 28-year-old female with history of asthma, GERD, migraines presenting with complaint of wheezing, chest tightness, and shortness of breath since . Has been using her nebulizer at home with little relief. Denies fevers. Denies abdominal pain, nausea, vomiting. MD complaint: shortness of breath and wheezing Associated symptoms: dry cough and chest pain Treatments Prior to Arrival: inhaled bronchodilator Related Data Home Medications ?Medication ?Instructions ?Recorded ?Confirmed montelukast 10 mg tablet 10 mg PO BEDTIME 12/19/23 03/09/24 Previous Rx's ?Medication ?Instructions ?Recorded albuterol sulfate 90 mcg/actuation 2 puff inhalation Q6H PRN 03/16/24 aerosol inhaler shortness of breath or wheezing 30 days #6.7 grams albuterol sulfate 2.5 mg/0.5 mL 5 mg inhalation Q6H PRN shortness 03/29/24 solution for nebulization of breath or wheezing #30 ea benzonatate 100 mg capsule 100 mg PO TID PRN cough #20 caps 03/29/24 prednisone 20 mg tablet 40 mg (2 x 20 mg) PO DAILY #10 tabs 03/29/24 Allergies Allergy/AdvReac Type Severity Reaction Status Date / Time No Known Allergies Allergy Verified 03/28/24 21:52 [No Known Allergies*] Review of Systems 2 Review of Systems: As per HPI Yes all other systems are reviewed and are negative Constitutional: Constitutional: Reports as per HPI PMFSH Past Medical History Medical History Mild persistent asthma Encounter for physical examination GERD (gastroesophageal reflux disease) Migraines Surgical History History of wisdom tooth extraction Family History Family History Father No problems noted. Mother No problems noted. Maternal Grandmother No problems noted. Paternal Grandmother Diabetes Hypertension Paternal Aunt Hypertension Diabetes Social History Social History Housing: Apartment Alcohol intake: current Alcohol intake frequency: holidays/special occasions only Alcohol type: wine Patient Tobacco Use Status: Never used Tobacco Smoked in Last 30 Days: No e-Cigarette/Vaping Use: Never Used Second Hand Smoke Exposure: Yes Use of substances other than those prescribed or required for medical reasons: Yes Substance Use Type: Marijuana Advance Directives: No Advance Directives Information Provided: Yes Do you have a plan to hurt others: No Plan Patient : No service: No Current occupational status: employed Current occupational exposures/hazards: No Cognitive needs: No Hearing needs: No Vision needs: Yes Physical Exam 2 Vital Signs: Vital Signs: Last Vital Signs Temp 98.2 F 03/29/24 01:14 Pulse 100 03/29/24 01:14 Resp 18 03/29/24 01:14 BP 110/66 03/29/24 01:14 Pulse Ox 96 03/29/24 01:14 O2 Del Method Room Air 03/29/24 01:14 BMI result Body Mass Index 23.0 Vital signs have been reviewed and appear to be correct. Blood pressure normal. Heart rate mildly tachycardic. Respiratory rate slightly tachypneic. Temperature normal. Oxygen saturation normal. Const: General: cooperative, healthy appearing and no acute distress O rientation/consciousness: oriented to person, oriented to place, oriented to time and patient oriented x3 Limitations: no limitations HEENT: Head: Yes normocephalic and Yes atraumatic Ears: external ears normal General nose exam: Normal external nose present Face and sinus: Yes face symmetric Mouth: oropharynx normal and moist mucous membranes Throat: Yes uvula midline Eyes: Pupils: Equal, round and reactive pupils present Neck: Neck: Yes normal visual inspection and Yes supple Resp: Effort & Inspection: normal respiratory effort, able to speak in complete sentences, Actively coughing Quality: dry and labored Auscultation: wheezes expiratory wheezes, inspiratory wheezes and throughout Cardio: Rate: regular rate Rhythm: regular rhythm Heart sounds: S1 normal heart sound present and S2 normal heart sound present GI: Palpation (GI): Soft to palpation and nontender Auscultation: n ormoactive bowel sounds : General: Yes no CVA tenderness Back/Spine/Pelvis: Back: no CVA tenderness Skin: General skin exam: elasticity normal and turgor normal Neuro: General: oriented to person, oriented to place, oriented to time, patient oriented x3, moves all extremities, no focal motor deficits and CN's II- XI intact bilaterally Cranial nerves: Yes Equal, round and reactive pupils present Cognition (Neuro): normal cognition Extrem: General: Yes full ROM, Yes no pedal edema and Yes no calf tenderness Psych: Mental Status: mental status grossly normal Affect: normal affect Thought process: Normal thought process present Medications Administered Discontinued Medications Generic Name Dose Route Start Last Admin Trade Name Freq PRN Reason Stop Dose Admin Albuterol Sulfate 7.5 mg/ 10 mg 03/28/24 22:01 03/28/24 22:09 Albuterol Sulfate 2.5 mg INHALE 03/28/24 22:02 10 mg ONCE ONE Administration Magnesium Sulfate 2 gm in 50 mls @ 25 mls/hr 03/28/24 22:25 03/28/24 22:44 Magnesium Sulfate/H2o IV 03/29/24 00:24 Infused ONCE ONE Infusion Methylprednisolone Sodium Succinate 60 mg 03/28/24 21:55 03/28/24 22:10 Methylprednisolone Sod Succ 125 Mg/2 Ml Vial IVPUSH 03/28/24 21:56 60 mg ONCE ONE Administration Ondansetron HCl 4 mg 03/28/24 22:38 03/28/24 22:41 Ondansetron Odt 4 Mg Tab.Rapdis TRANSLINGU 03/28/24 22:39 4 mg ONCE ONE Administration Medical Decision Making Medical Decision Making [facility] Narrative: Patient is a 28-year-old female with history of asthma, GERD, migraines presenting with complaint of wheezing, chest tightness, and shortness of breath since . On exam patient is awake, A+Ox3, mildly tachypneic and tachycardic, afebrile, normal neurological exam without focal deficits, physical exam findings as above. Given reported symptoms and physical exam findings, initial differential includes but is not limited to asthma exacerbation, viral illness, covid, flu, rsv, bronchitis, pneumonia. Labs notable for mild leukocytosis. Viral serology negative. X-ray chest notable for no evidence of pneumonia. My interpretation is in agreement with the radiologist's interpretation. Patient reports significant improvement after medications administered in the ED. Mild scattered wheezes after breathing treatment. Oxygen saturation 96-97% on room air. Patient is in agreement with discharge home. Return precautions discussed. Patient verbalized understanding of and agreement with plan. Differential Diagnosis Differential Diagnoses: The differential diagnosis associated with the presentation includes As per [facility] Admission/Observation Consideration of admission/observation: Escalation of care including admission/observation considered Patient would have been admitted to the hospital had their work up had any findings where hospital admission was appropriate and their clinical presentation warranted hospital admission. Lab Data [facility] Lab Attestation statement: I reviewed the patient's lab results. As per [facility] 03/28/24 22:05 03/28/24 22:05 Labs: Lab Results 03/28/24 03/28/24 Range/Units 22:05 22:19 WBC 12.5 H (4.8-10.8) X10*3/uL RBC 4.66 (4.20-5.50) X10*6/uL Hgb 12.5 (12.0-16.0) g/dl Hct 37.2 (37.0-47.0) % MCV 79.8 L (80.0-98.0) fL MCH 26.8 L (27.0-33.0) pg MCHC 33.6 (31.0-35.0) g/dl RDW 13.5 (11.0-16.0) % Plt Count 315 (160-400) X10*3/uL MPV 9.6 (9.4-12.3) fL Immature Gran % (Auto) 0.3 (0.0-0.4) % Neut % (Auto) 67.3 (45-73) % Lymph % (Auto) 19.1 L (20-40) % [place] % (Auto) 7.4 (2-11) % Eos % (Auto) 5.5 H (0-4) % Baso % (Auto) 0.4 (0-2) % Lymph # (Auto) 2.4 (1.2-4.9) X10*3/uL [place] # (Auto) 0.9 (0.1-1.2) X10*3/uL Eos # (Auto) 0.7 H (0.0-0.4) X10*3/uL Baso # (Auto) 0.1 (0.0-0.2) X10*3/uL Abs Immat Gran (auto) 0.04 H (0.00-0.03) X10*3/uL Absolute Neuts (auto) 8.4 H (2.0-8.3) x10*3/uL Absolute Nucleated RBC 0.000 (0.0-0.012) X10*3/uL Nucleated RBC % (auto) 0.0 (0.0-0.2) /100WBC Sodium 140 (135-145) mmol/L Potassium 3.7 (3.3-5.1) mmol/L Chloride 111 H (96-108) mmol/L Carbon Dioxide 22 (22-29) mmol/L Anion Gap 11 L (12-20) BUN 13 (9-16) mg/dL Creatinine 0.70 (0.5-1.4) mg/dL Estim Creat Clear Calc 95.5 Estimated GFR > 60 Random Glucose 87 (60-115) mg/dL Calcium 8.6 (8.4-10.2) mg/dL Total Bilirubin 0.2 (0.0-1.0) mg/dL AST 32 H (5-31) U/L ALT 23 (0-31) U/L Alkaline Phosphatase 63 (39-117) U/L Total Protein 8.0 (6.5-8.0) g/dL Albumin 4.3 (3.5-5.0) g/dL Influenza Type A (PCR) NEGATIVE (Negative) Influenza Type B (PCR) NEGATIVE (Negative) RSV RNA Qual (PCR) NEGATIVE (Negative) SARS-CoV-2 RNA (RT-PCR) NEGATIVE (Negative) Independent Interpretation I performed an independent interpretation of an: Plain X-Ray Interpretation: No evidence of pneumonia on chest x-ray. Radiology Impression Discussion of test interpretation with radiology: I have reviewed the radiologist's reading. Radiologist Impression: 1 view chest x-ray. Comparison: CR/NE/SR - CHEST 1 VIEW - 06/21/19 21:46 EDT Findings: No consolidation, pneumothorax, or effusion. Heart size normal. Impression: 1. No acute cardiopulmonary process. No focal pulmonary consolidation. External Record Review External record reviewed: Inpatient record, Office record and Outpatient record Prescription Management I considered prescription management with: Other Attestation Attending Attestation: I was personally present and available for consultation in the ED. I have reviewed everything on the chart that is available and agree with the documentation provided by the [facility] including discussion about the assessment, treatment plan and discussion. Based on medical record the care appears appropriate. Nicko Houston MD [facility] Emergency Medicine Discharge Plan Discharge Clinical Impression: Asthma with acute exacerbation Patient Disposition: Home, Self-Care Instructions: Asthma (DC) Additional Instructions: You were evaluated in the emergency department today for cough, wheezing and shortness of breath. You are being treated for an asthma exacerbation with a short course of steroids to decrease inflammation. You are being prescribed benzonatate for cough which you can use every 8 hours as needed, PLEASE BE SURE TO KEEP THIS MEDICATION OUT OF THE REACH OF CHILDREN. You are being prescribed albuterol for your nebulizer which you can use every 4-6 hours as needed for shortness of breath. Please follow-up with your primary care provider this week. Return to the emergency department if you develop worsening shortness of breath, difficulty breathing, chest pain, fever not improved with Tylenol or ibuprofen, or any other concerning symptoms. Prescriptions: New prednisone 20 mg tablet 40 mg PO DAILY Qty: 10 0RF benzonatate 100 mg capsule 100 mg PO TID PRN (Reason: cough) Qty: 20 0RF albuterol sulfate 2.5 mg/0.5 mL solution for nebulization 5 mg inhalation Q6H PRN (Reason: shortness of breath or wheezing) Qty: 30 0RF No Action albuterol sulfate 90 mcg/actuation HFA aerosol inhaler 2 puff inhalation Q6H PRN (Reason: shortness of breath or wheezing) 30 Days Qty: 6.7 0RF montelukast 10 mg tablet 10 mg PO BEDTIME Stand Alone Forms: Work/School Release Discharge Date/Time: 03/29/24 01:15 Print Language: Spanish
[2024-03-28 22:05] VITALS: RESP 18; O2SAT 99
[2024-03-28] MEDS: Albuterol Sulfate 7.5 MG, Albuterol Sulfate (0.083%) 2.5 MG 10 MG INHALE (22:09)
[2024-03-28 22:10] LABS: MANUAL DIFF FLAG NO
[2024-03-28] MEDS: methylPREDNISolone Sod Succ 125 MG/2 ML VIAL 60 MG IVPUSH (22:10)
[2024-03-28 22:25] LABS: Basophils Absolute Auto 0.1 X10*3/uL (0.0-0.2); Basophils Percent Auto 0.4 % (0-2); Eosinophils Absolute Auto 0.7 X10*3/uL (0.0-0.4); Eosinophils Percent Auto 5.5 % (0-4); Hematocrit 37.2 % (37.0-47.0); Hemoglobin 12.5 g/dl (12.0-16.0); Imm Gran Abs Auto 0.04 X10*3/uL (0.00-0.03); Imm Gran Pct Auto 0.3 % (0.0-0.4); Lymphocytes Absolute Auto 2.4 X10*3/uL (1.2-4.9); Lymphocytes Percent Auto 19.1 % (20-40); Mean Corpuscular HGB Conc 33.6 g/dl (31.0-35.0); Mean Corpuscular Hemoglobin 26.8 pg (27.0-33.0); Mean Corpuscular Volume 79.8 fL (80.0-98.0); Mean Platelet Volume 9.6 fL (9.4-12.3); Monocytes Absolute Auto 0.9 X10*3/uL (0.1-1.2); Monocytes Percent Auto 7.4 % (2-11); Neutrophils Absolute Auto 8.4 x10*3/uL (2.0-8.3); Neutrophils Percent Auto 67.3 % (45-73); Platelet Count 315 X10*3/uL (160-400); Red Blood Count 4.66 X10*6/uL (4.20-5.50); Red Cell Distribution Width 13.5 % (11.0-16.0); White Blood Count 12.5 X10*3/uL (4.8-10.8)
[2024-03-28] MEDS: Magnesium Sulfate/H2O 2 GM/50 ML PIGGYBACK IV (22:29)
[2024-03-28 22:32] LABS: Alanine Aminotransferase 23 U/L (0-31); Albumin Level 4.3 g/dL (3.5-5.0); Alkaline Phosphatase 63 U/L (39-117); Anion Gap 11 (12-20); Aspartate Amino Transferase 32 U/L (5-31); Bilirubin Total 0.2 mg/dL (0.0-1.0); Blood Urea Nitrogen 13 mg/dL (9-16); Calcium 8.6 mg/dL (8.4-10.2); Carbon Dioxide 22 mmol/L (22-29); Chloride 111 mmol/L (96-108); Creatinine Clr Calc Pharmacy 95.5; Estimated Glomerular Filt Rate > 60; Glucose Random 87 mg/dL (60-115); Potassium 3.7 mmol/L (3.3-5.1); Sodium 140 mmol/L (135-145)
[2024-03-28 22:39] VITALS: BP 100/41; PULSE 110; RESP 24; TEMP 36.7; O2SAT 98
[2024-03-28] MEDS: Ondansetron ODT 4 MG TAB.RAPDIS TRANSLINGU (22:41)
--- NOTE | 2024-03-28 22:44 | PC.NURSE ---
pt had one episode of vomitting during magnesium infusion, FRANCO [place] notified- zofran 4mg given per order
[2024-03-28 23:02] LABS: Influenza A PCR NEGATIVE (Negative); Influenza B PCR NEGATIVE (Negative); Resp Syncy Virus RNA Qual PCR NEGATIVE (Negative); SARS COV2 PCR INHOUSE NEGATIVE (Negative)
[2024-03-29 01:14] VITALS: BP 110/66; PULSE 100; RESP 18; TEMP 36.8; O2SAT 96
== END 2024-03-29 01:15 | disposition home or self-care (01) ==
PROVIDERS: Emergency Provider Emergency Medicine; PCP Internal Medicine
DX: J45.901 Unspecified asthma with (acute) exacerbation (principal); R06.02 Shortness of breath; Z03.818 Encounter for observation for suspected exposure to other biological agents ruled out
CPT/HCPCS: 0241U; 36415; 71045; 80053; 85025; 93005; 94640; 96374; 96375; 99284; 99285; J2919; J3475

== ENCOUNTER → 2024-03-28 21:42 | Outpatient (BNV) | payer OTHER, SELFPAY | PROVIDERS: Emergency Provider Emergency Medicine; PCP Internal Medicine; Visit Provider Internal Medicine | DX: R07.9 Chest pain, unspecified (principal) | CPT/HCPCS: 93010 ==

== ENCOUNTER → 2024-03-28 22:04 | Outpatient (BNV) | payer OTHER, SELFPAY | PROVIDERS: Emergency Provider Emergency Medicine; PCP Internal Medicine; Visit Provider Radiology Diagnostic Radiology | DX: R06.02 Shortness of breath (principal) | CPT/HCPCS: 71045 ==

== ENCOUNTER 2024-06-18 16:27 | Outpatient (AMB) | payer OTHER, SELFPAY ==
[2024-06-18 16:29] VITALS: BP 82/56; PULSE 73; TEMP 36.2; O2SAT 100; BMI 23.4
--- NOTE | 2024-06-18 16:29 | MHC.PC.OV ---
Vital Signs 06/18/24 16:29 Height 5 ft 2 in Weight 128 lb BMI 23.4 BP 82/56 L Blood Pressure Location Lt brachial Position Sitting Pulse 73 Pulse Source Pulse Oximeter Temp 97.1 F Temp Source Temporal Artery Scan Pulse Oximetry (%) 100 Oxygen Delivery Method Room Air Intake Visit Reasons: depression Side Seam Tender Required: No Accompanied by: Self / Same As Patient Allergies No Known Allergies [No Known Allergies*] Allergy (Verified 06/18/24 16:38) Medication List - Last Reconciled 06/18/24 by Jessica Rogers MD albuterol sulfate 5 mg inhalation Q6H PRN albuterol sulfate 90 mcg/actuation 2 puffs inhalation Q6H PRN 30 days benzonatate 100 mg PO TID PRN montelukast 10 mg PO BEDTIME prednisone 40 mg (2 x 20 mg) PO DAILY Tobacco use date assessed: 03/09/24 Dental Screening Dental Screen Date: 03/09/24 HPI HPI Comments History of Present Illness Details The patient is a 28-year-old female presenting with multiple ongoing health issues including complicated asthma, sciatica, moderate depression, visual impairment, and possible leukocytosis. Her asthma was previously exacerbated and required prednisone treatment, which she has since completed. She has developed right-side sciatica that has been worsening, potentially linked to previous falls. The patient's experience with depression has been moderate; however, she has not engaged in therapy due to a preference for exploring alternatives to medication. The patient experienced an elevation in white blood cell count while on prednisone, which may be related. This will be monitored through repeat blood testing. Her vision is impaired, mostly in her left eye, but is managed with corrective lenses. After a CT and ultrasound for gastrointestinal evaluation showed no abnormalities, the patient's condition normalized with better diet management and regular menstruation. Her historical migraines have subsided significantly due to corrective lens usage. [facility] Medical History (Updated 06/18/24 @ 16:55 by Jessica Rogers MD) Mild persistent asthma Encounter for physical examination GERD (gastroesophageal reflux disease) Migraines Surgical History History of wisdom tooth extraction Family History Father No problems noted. Mother No problems noted. Maternal Grandmother No problems noted. Paternal Grandmother Diabetes Hypertension Paternal Aunt Hypertension Diabetes Social History Housing: Apartment Alcohol intake: current Alcohol intake frequency: holidays/special occasions only Alcohol type: wine Patient Tobacco Use Status: Never used Tobacco e-Cigarette/Vaping Use: Never Used Second Hand Smoke Exposure: Yes Substance Use Type: Marijuana service: No Current occupational status: employed Current occupational exposures/hazards: No Cognitive needs: No Hearing needs: No Vision needs: Yes Questionnaire PHQ-9 Over the last 2 weeks, how often have you been bothered by any of the following problems? 1. Little interest or pleasure in doing things: more than half the days 2. Feeling down, depressed, or hopeless: nearly every day 3. Trouble falling or staying asleep, or sleeping too much: nearly every day 4. Feeling tired or having little energy: more than half the days 5. Poor appetite or overeating: not at all 6. Feeling bad about yourself - or that you are a failure or have let yourself or your family down: more than half the days 7. Trouble concentrating on things, such as reading the newspaper or watching television: nearly every day 8. Moving or speaking so slowly that other people could have noticed. Or the opposite - being so fidgety or restless that you have been moving around a lot more than usual: not at all 9. Thoughts that you would be better off or of hurting yourself in some way: several days Total score: 16 Depression Screening Interpretation: Positive (no suicidal thoughts) Depression Screening Follow-up: Existing condition, Community Mental Health Worker F/U and Follow-up Visit Requested Depression Screening Done: Yes 59564 - PHQ-9 Billing: Yes Source: Developed by Drs. Delvis Ivory, Kim Ibrahim, Tom Bennett and colleagues, with an educational phuong from [employer] assistant. Thrive Questionnaire Date Thrive assessed: 03/09/24 DIGNA-7 AMB Questionnaire DIGNA-7 Date DIGNA - 7 assessed: 06/18/24 Feeling nervous, anxious, or on edge: 2 = More than half the days Not being able to stop or control worryin = Nearly every day Worrying too much about different things: 3 = Nearly every day Trouble relaxin = Nearly every day Being so restless that it is hard to sit still: 3 = Nearly every day Becoming easily annoyed or irritable: 2 = More than half the days Feeling afraid as if something awful might happen: 3 = Nearly every day Total DIGNA-7 score (0-4 normal; 5-9 mild; 10-14 moderate; 15-21 severe): 19 Source: Developed by Drs. Delvis Ivory, Kim Ibrahim, Tom Bennett and colleagues, with an educational phuong from [employer] assistant. DIGNA-7 Assessment Billing DIGNA-7 Assessment Tool: DIGNA-7 Assessment 89803 Review of Systems Const All systems reviewed & are unremarkable except as noted in HPI and below Card Denies chest pain at rest, Denies chest pain with activity, Denies edema, Denies irregular heart rhythm, Denies claudication, Denies dyspnea, Denies dyspnea on exertion, Denies orthopnea, Denies paroxysmal nocturnal dyspnea and Denies slow heart rate Resp Denies cough, Denies dyspnea and Denies dyspnea on exertion Physical exam (Primary Care) Vital Signs: Last Vital Signs Temp 97.1 F 06/18/24 16:29 Pulse 73 06/18/24 16:29 BP 82/56 L 06/18/24 16:29 Pulse Ox 100 06/18/24 16:29 Oxygen Delivery Method Room Air 06/18/24 16:29 BMI result Body Mass Index 23.4 Tobacco/Smoking Status: Tobacco use Status Tobacco use date assessed 03/09/24 06/18/24 16:34 Patient Tobacco Use Status Never used Tobacco 06/18/24 16:34 e-Cigarette/Vaping Use Never Used 06/18/24 16:34 PHQ-9: PHQ-9 Score PHQ-9: Total score 16 06/18/24 16:34 Depression Screening Interpretation: Positive (no suicidal thoughts) Depression Screening Follow-up: Existing condition, Community Mental Health Worker F/U and Follow-up Visit Requested Thrive Assessment: Date of Thrive Assessment Date Thrive assessed 03/09/24 06/18/24 16:34 Resp Effort & Inspection: normal respiratory effort Auscultation: clear to auscultation bilaterally Cardio Jugular venous distension: no JVD Rate: regular rate Rhythm: regular rhythm Heart sounds: S1 normal heart sound present and S2 normal heart sound present Extrem General: Yes full ROM Coding Level of Care Code Est Pt Level 4 (35847) Complex EM visit Add On G2211 Diagnoses Moderate major depression F32.1 Anxiety F41.9 Mild persistent asthma J45.30 GERD (gastroesophageal reflux disease) K21.9 Right sided sciatica M54.31 Additional Codes DIGNA-7 Assessment Billing - DIGNA-7 Assessment Tool: DIGNA-7 Assessment 86474 ([id number]) PHQ-9 - 70960 - PHQ-9 Billing: Yes ([id number]) Time Spent (min) 21 Assessment & Plan Assessment & Plan (1) Moderate major depression: Code(s): F32.1 - Major depressive disorder, single episode, moderate Category: Medical (2) Anxiety: Code(s): F41.9 - Anxiety disorder, unspecified Category: Medical (3) Mild persistent asthma: Code(s): J45.30 - Mild persistent asthma, uncomplicated Category: Medical (4) GERD (gastroesophageal reflux disease): Code(s): K21.9 - Gastro-esophageal reflux disease without esophagitis Category: Medical (5) Right sided sciatica: Code(s): M54.31 - Sciatica, right side Category: Medical Plan Asthma control will continue with current measures and monitoring post-prednisone. The patient is to begin counseling to manage moderate depression. Physical therapy will be initiated for the right-side sciatica. Repeat CBC will be conducted to examine the leukocytosis. Vision correction with eyeglasses will persist for visual issues. Patient was informed and verbally consented to the use of an ambient scribe for clinic note documentation during this visit. I discussed with the patient the continuation of asthma management techniques, particularly addressing the recent complications and treatment with prednisone. I emphasized the role of counseling in managing moderate depression and validated her preference for non-medical interventions initially. We also addressed physical therapy to relieve sciatica discomfort and its impact on her mobility. Clarification about repeat blood testing for elevated white blood cell count was provided to ensure no active infection or inflammation persists. The importance of maintaining regular vision correction practices was also discussed. Follow-up appointments were recommended to assess ongoing interventions and monitor improvement. Orders: Orders Complete Blood Count Auto Diff Today R10.9 - Unspecified abdominal pain Referrals Counseling Referral F32.1 - Major depressive disorder, single episode, moderate, F41.9 - Anxiety disorder, unspecified Patient Instructions: - Continue following asthma management plan. - Attend counseling as discussed. - Undergo physical therapy for sciatica. - Follow through with scheduled repeat CBC. - Use eyeglasses regularly for vision correction. - Maintain healthy dietary habits. - Book and keep follow-up appointments as planned.
--- OUTSIDE RECORDS SUMMARY | 2024-06-18 18:45 | XMS_ITS | Encounter Summary ---
Author Organization [facility] Address [address] [place] [address] Care Team Providers Care Labor Relations Representative Name Role Phone Unavailable Primary Care Provider Unavailabl e Encounter Details Date Type Department Care Team (Late st Contact Info) Description 04/26/2022 Abstract [facility] [address] [place] [address] Lizzy Burrows, DDS [address] [place] [address] Social History Tobacco Use Types Packs/Day Years Used Date Smoking Tobacco: Never Smokeless Tobacco: Never Comments Unknown Sex and Gender Information Value Date Recorded Sex Assigned at Female 12/25/2021 10:37 AM EDT Legal Sex Female 10:37 AM EDT Gender Identity Female 12/25/2021 10:37 AM EDT Sexual Orientation Straight 12/25/2021 10 :37 AM EDT COVID-19 Exposure Response Date Recorded In the last 10 days, have yo u been in contact with someone who was confirmed or suspected to have Coronavirus/COVID-19? No / Unsure 04/06/2022 8:06 AM EST documented as of this encounter Plan of Treatment Upcoming Encounters Date Type Department Care Team (Late st Contact Info) Description 07/09/2024 8:00 AM EDT Office Visit [facility] [address] [place] [address] Lizzy Burrows, DDS [address] [place] [address] documented as of this encounter Visit Diagnoses Not on filedocumented in this encounter
--- OUTSIDE RECORDS SUMMARY | 2024-06-18 18:45 | XMS_ITS | Encounter Summary ---
Author Organization [facility] Address [address] [place] [address] Care Team Providers Care [place] Ma[place] Name Role Phone Unavailable Primary Care Provider Unavailabl e Reason for Visit * Reason Onset Date Comments appt 07/11/2023 Encounter Details Date Type Department Care Team (Late st Contact Info) Description 07/11/2023 Telephone [facility] [address] [place] [address] Novoa-Lizzy Ramirez, DDS [address] [place] [address] appt Social History Tobacco Use Types Packs/Day Years Used Date Smoking Tobacco: Never Smokeless Tobacco: Never Comments Unknown Sex and Gender Information Value Date Recorded Sex Assigned at Female 12/25/2021 10:37 AM EDT Legal Sex Female 10:37 AM EDT Gender Identity Female 12/25/2021 10:37 AM EDT Sexual Orientation Straight 12/25/2021 10 :37 AM EDT documented as of this encounter Miscellaneous Notes * Telephone Encounter - Lesly Cooley - 07/11/2023 3:29 PM EDT Patient called in to check in on status of appt. Pls reach out to patient DR documented in this encounter Plan of Treatment Upcoming Encounters Date Type Department Care Team (Late st Contact Info) Description 07/09/2024 8:00 AM EDT Office Visit [facility] [address] [place] [address] Novoa-RamirezLizzy monterroso, DDS [address] [place] [address] documented as of this encounter Visit Diagnoses Not on filedocumented in this encounter
--- OUTSIDE RECORDS SUMMARY | 2024-06-18 18:45 | XMS_ITS | Encounter Summary ---
Author Organization [facility] Address [address] [place] [address] Care Team Providers Care Legal Executive Name Role Phone Unavailable Primary Care Provider Unavailabl e Encounter Details Date Type Department Care Team (Latest Contact Info) Description 07/20/2020 Abstract [facility] Dental, Provider, DDS Social History Tobacco Use Types Packs/Day Years Used Date Smoking Tobacco: Never Assessed Comments Unknown Sex and Gender Information Value Date Recorded Sex Assigned at Female 12/25/2021 10:37 AM EDT Legal Sex Female 10:37 AM EDT Gender Identity Female 12/25/2021 10:37 AM EDT Sexual Orientation Straight 12/25/2021 10 :37 AM EDT documented as of this encounter Plan of Treatment Upcoming Encounters Date Type Department Care Team (Late st Contact Info) Description 07/09/2024 8:00 AM EDT Office Visit [facility] [address] [place] [address] Novoa-Ramirez, Lizzy, DDS [address] [place] [address] documented as of this encounter Visit Diagnoses Not on filedocumented in this encounter
--- OUTSIDE RECORDS SUMMARY | 2024-06-18 18:45 | XMS_ITS | Encounter Summary ---
Author Organization [facility] Address [address] [place] [address] Care Team Providers Care Metal Washing Machine Operator Name Role Phone Unavailable Primary Care Provider Unavailabl e Reason for Visit * Reason Onset Date Comments pain/dental visit 02/10/2024 Encounter Details Date Type Department Care Team (Late st Contact Info) Description 02/10/2024 Telephone [facility] [address] [place] [address] Lizzy Burrows, EVARISTOS [address] [place], [place] [phone] pain/dental visit Social History Tobacco Use Types Packs/Day Years [...] * Telephone Encounter - Lesly Cooley - 02/10/2024 10:30 AM EST Patient called in stating that they were in pain. An emergency visit was offered but the patient could not make it in at the times that were offered. She said never mind forget it. I explained to thepatient that I can send a message to office seeing [facility] or provider not in office and the last appt was cancelled by patient. She stated that those appts were not for the tooth that she is in pain now. I informed patient that nonetheless I would send message over to office to inform of what is happening and to see if there is anything that can be done other than what can be done on the par side. documented in this encounter Plan of Treatment Upcoming Encounters Date Type Department Care Team (Late st Contact Info) Description 07/09/2024 8:00 AM EDT Office Visit [facility] [address] [place], [place] [phone] Lizzy Burrows, PANKAJ [address] [place] [address] documented as of this encounter Visit Diagnoses Not on filedocumented in this encounter
--- OUTSIDE RECORDS SUMMARY | 2024-06-18 18:45 | XMS_ITS | Clinical Summary ---
Author Organization [facility] Address [address] [place] [address] Care Team Providers Care Picture Booker Name Role Phone Unavailable Primary Care Provider Unavailabl e Allergies No known active allergies Medications montelukast (Singulair) 10 MG tablet Take 10 mg by mouth at bedtime. 2 Active albuterol 108 (90 Base) MCG/ACT inhaler TAKE 2 PUFFS INHALED EVERY 6 HOURS NEEDED FOR SHORTNESS OF BREATH OR WHEEZING FOR 30 DAYS 5 Active ibuprofen 600 MG tablet Take 600 mg by mouth every 6 (six) hours. 1 Active Melatonin 10 MG chewable tablet Chew. Acti ve Active Problems No known active problems Encounters Date Type Department Care Team Description 05/28/2024 10:30 AM EDT Office Visit [facility] [address] [place] [address] Novoa-Ramirez, Lizzy, DDS Dental caries (Primary Dx); Recurrent dental caries extending into dentin 04/27/2024 8:00 AM EST Office Visit [facility] [address] [place] [address] Jerman Celayasa Dental calculus (Primary Dx); Encounter for dental examination; Dental caries from Last 3 Months Immunizations Name Administration Dates Next Due Tdap 08/07/2020 Social History Tobacco Use Types Packs/Day Years Used Date Smoking Tobacco: Never Smokeless Tobacco: Never Tobacco Cessation:Counseling Given: Not Answered Comments Unknown Sex and Gender Information Value Date Recorded Sex Assigned at Female 12/25/2021 10:37 AM EDT Legal Sex Female 10:37 AM EDT Gender Identity Female 12/25/2021 10:37 AM EDT Sexual Orientation Straight 12/25/2021 10 :37 AM EDT Last Filed Vital Signs Vital Sign Reading Time Taken Comments Blood Pressure 132/68 05/28/2024 10:38 AM EDT Pulse 98 05/29/2022 2:55 PM EDT Temperature - - Respiratory Rate - - Oxygen Saturation - - Inhaled Oxygen Concentration - - Weight - - Height - - Body Mass Index - - Plan of Treatment Upcoming Encounters Date Type Department Care Team (Late st Contact Info) Description 07/09/2024 8:00 AM EDT Office Visit [facility] [address] [place] [address] Novoa-Ramirez, Lizzy, DDS [address] [place], [place] [phone] Health Maintenance Due Date Last Done Comments Depression Screening 1996 HIV Screening 1996 SDOH Screening 1996 Alcohol/Substance Use Screening 2008 Family Planning (PISQ) 11/20/2011 Hepatitis C Screening 2014 Hepatitis B Vaccines (1 of 3 - 19+ 3-dose series) 11/20/2015 Pap Smear 2017 COVID-19 Vaccine ( season) 2023 07/22/2020, 06/27/2020 Influenza Vaccine (#1) 2023 11/30/2021, 2019 Dental Oral Exam 10/29/2024 04/27/2024 Dental Prophylaxis 10/29/2024 04/27/2024 Dental X-Ray: Bitewings 04/28/2025 04/28/19, 03/19/2023, 01/22/2023, Additional history exists Tobacco Screening 05/28/2025 05/28/2024 Dental X-Ray: Full Mouth 04/29/2027 04/27/2024 DTaP/Tdap/Td Vaccines (3 - Td or Tdap) 08/07/2030 08/07/2020, 06/09/2013 Zoster Vaccines (1 of 2) 2046 RSV Patients and Patients Aged 60 years or older (1 - 1-dose 75+ series) 11/20/2071 HIB Vaccines Aged Out No longer eligi ble based on patient's age to complete this topic HPV Vaccines Aged Out No longer eligi ble based on patient's age to complete this topic Hepatitis A Vaccines Aged Out No long er eligible based on patient's age to complete this topic IPV Vaccines Aged Out No longer eligi ble based on patient's age to complete this topic Meningococcal Vaccine Aged Out No iggy cate eligible based on patient's age to complete this topic Pneumococcal Vaccine: Pediatrics (0 to 5 Years) and At-Risk Patients (6 to 49) Years) Aged Out No longer eligible based on patient's age to complete this topic RSV under 20 months Aged Out No longe r eligible based on patient's age to complete this topic Rotavirus Vaccines Aged Out No longer eligible based on patient's age to complete this topic Procedures Procedure Name Priority Date/Time Associated Diagnosis Comments 3 DO RESIN-BASED COMPOSITE - 2 SURF, POSTERIOR Routine 05/28/2024 10:30 AM EDT Dental caries Recurrent dental caries extending into dentin 2 MO RESIN-BASED COMPOSITE - 2 SURF, POSTERIOR Routine 05/28/2024 10:30 AM EDT Dental caries Recurrent dental caries extending into dentin COMPREHENSIVE PERIODONTAL EVALUATION - NEW OR ESTABLISHED PATIENT Routine 04/27/2024 8:00 AM EST Dental calculus Encounter for dental examination Dental caries PERIODIC ORAL EVALUATION - ESTABLISHED PATIENT Routine 04/27/2024 8:00 AM EST Dental calculus Encounter for dental examination Dental caries CASE PRESENTATION, DETAILED AND EXTENSIVE TREATMENT PLANNING Routine 04/27/2024 8:00 AM EST ORAL HYGIENE INSTRUCTIONS Routine 2024 8:00 AM EST Dental calculus PROPHYLAXIS - ADULT Routine 04/27/2024 8 :00 AM EST Dental calculus INTRAORAL - COMPLETE SERIES OF RADIOGRAPHIC IMAGES Routine 04/27/2024 8:00 AM EST from Last 3 Months Insurance [facility]
== END 2024-06-18 16:48 | disposition home or self-care (01) ==
LOC: HO.HMCH 16:27
PROVIDERS: PCP Internal Medicine; Visit Provider Internal Medicine
DX: F32.1 Major depressive disorder, single episode, moderate (principal); F41.9 Anxiety disorder, unspecified; J45.30 Mild persistent asthma, uncomplicated; K21.9 Gastro-esophageal reflux disease without esophagitis; M54.31 Sciatica, right side

== ENCOUNTER → 2024-06-18 16:27 | Outpatient (BNVA) | payer OTHER, SELFPAY | PROVIDERS: PCP Internal Medicine; Visit Provider Internal Medicine | DX: F32.1 Major depressive disorder, single episode, moderate (principal); F41.9 Anxiety disorder, unspecified; J45.30 Mild persistent asthma, uncomplicated; K21.9 Gastro-esophageal reflux disease without esophagitis; M54.31 Sciatica, right side | CPT/HCPCS: 96127; 99212 ==

== ENCOUNTER 2024-12-18 01:47 | Emergency (ER) | payer OTHER, SELFPAY ==
--- NOTE | 2024-12-18 01:49 | ECG_ITS ---
Test Reason : ALLERGIC REACTION Blood Pressure : */* mmHG Vent. Rate : 64 BPM Atrial Rate : 64 BPM P-R Int : 204 ms QRS Dur : 70 ms QT Int : 404 ms P-R-T Axes : 67 73 15 degrees QTcB Int : 416 ms Normal sinus rhythm Normal ECG When compared with ECG of 28-Mar-2024 21:42, ST elevation now present in Anterior leads Referred By: Sherry Laws Electronically Signed By: ZARI RIVERA MD
--- NOTE | 2024-12-18 01:50 | ED.GENADULT ---
HPI - General Adult General Chief complaint: Allergic Reaction Stated complaint: CP Time Seen by Provider: 12/18/24 02:47 Source: patient Mode of arrival: ambulatory Limitations: no limitations History of Present Illness ED Provider: Albert CROCKER HPI narrative: The patient is a 29-year-old female presenting to the ED reporting a history of multiple allergies, including seasonal allergies and an allergy to dog and pet dander. 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 The patient presenting to the ED for evaluation and management, denies taking any medication for her symptoms prior to arrival in the ED. The patient is unable to identify a trigger for her symptoms, reports she was eating mangoes and grapes prior to onset of symptoms, however she reports eating mangoes and grapes many times in the past without issue. The patient denies any other new foods, denies new cosmetics, detergents, shampoos, or soaps. The patient reports since onset of symptoms the chest discomfort has become less pressure and more of a squeezing. Patient denies associated stridor, wheezing, trismus, dysphagia, hemoptysis, shortness of breath, pleurisy, cough, shortness of breath, abdominal pain, nausea, vomiting, or urticaria. Related Data Home Medications ?Medication ?Instructions ?Recorded ?Confirmed montelukast 10 mg tablet 10 mg PO BEDTIME 12/19/23 06/18/24 Previous Rx's ?Medication ?Instructions ?Recorded albuterol sulfate 2.5 mg/0.5 mL 5 mg inhalation Q6H PRN shortness 03/29/24 solution for nebulization of breath or wheezing #30 ea benzonatate 100 mg capsule 100 mg PO TID PRN cough #20 caps 03/29/24 prednisone 20 mg tablet 40 mg (2 x 20 mg) PO DAILY #10 tabs 03/29/24 albuterol sulfate 90 mcg/actuation 2 puff inhalation Q6H PRN 04/12/24 aerosol inhaler shortness of breath or wheezing 30 days #6.7 grams famotidine 20 mg tablet (Pepcid) 20 mg PO BID 5 days #10 tabs 12/18/24 prednisone 20 mg tablet 60 mg (3 x 20 mg) PO DAILY 5 days 12/18/24 #15 tabs Allergies Allergy/AdvReac Type Severity Reaction Status Date / Time environmental allergies Allergy Unknown Verified 12/18/24 01:55 Review of Systems Review of Systems: Yes all other systems are reviewed and are negative [facility] Past Medical History Medical History Mild persistent asthma Encounter for physical examination GERD (gastroesophageal reflux disease) Migraines Surgical History History of wisdom tooth extraction Family History Family History Father No problems noted. Mother No problems noted. Maternal Grandmother No problems noted. Paternal Grandmother Diabetes Hypertension Paternal Aunt Hypertension Diabetes Social History Social History Housing: Apartment Alcohol intake: current Alcohol intake frequency: holidays/special occasions only Alcohol type: wine Patient Tobacco Use Status: Never used Tobacco e-Cigarette/Vaping Use: Never Used Second Hand Smoke Exposure: Yes Substance Use Type: Marijuana Advance Directives: No Advance Directives Information Provided: Yes service: No Current occupational status: employed Current occupational exposures/hazards: No Cognitive needs: No Hearing needs: No Vision needs: Yes Physical Exam ED Vital Signs: Vital Signs - 24 hr 12/18/24 01:55 Temperature 98 F Pulse Rate 60 Respiratory Rate 20 Blood Pressure 114/65 Pulse Oximetry 98 Oxygen Delivery Method Room Air BMI result Body Mass Index 25.2 CONSTITUTIONAL: The patient appears non-toxic, well nourished and in no acute distress. Vital signs as documented. HEAD: Atraumatic, normocephalic. EYES: EOMs grossly intact, pupils equal, conjunctiva clear, no exudate. ENT: Nares patent, no discharge. Airway patent, no audible stridor, visible mucosa is pink and moist without noted lesions. There is [id number] swelling of the upper lip noted, no lingular edema/swelling. Posterior pharynx demonstrates midline nonedematous uvula, no peritonsillar or tonsillar swelling, no tonsillar exudate. NECK: Trachea is midline, no obvious masses or gross abnormalities. CHEST: Symmetric movement, normal appearance. LUNGS: LS present and CTAB, no w/r/r. Non-labored work of breathing. CARDIAC: Regular Rhythm, S1/S2 appreciated, no murmurs, rubs or gallops. ABDOMEN: Abdomen soft and non-tender x4 quadrants, no palpable masses or organomegaly. : Deferred. EXTREMITIES: Normal tone, moves all extremities spontaneously without reported pain. No obvious acute injury or deformity noted. NEURO: Alert and oriented x3, CN II-XII appear grossly intact. Cerebellar Functioning grossly intact. No obvious sensory or motor deficits. Speech clear and appropriate. PSYCH: normal affect, appropriate eye contact, fluid speech, with appropriate response to questioning. No reported suicidality or homicidality. SKIN: Warm, dry, color appropriate, normal turgor. No rashes noted. Course Course Course Narrative: This is a Rapid Medical Examination (RME) performed by Debbi Laws PA-C in triage. Full HPI, ROS, assessment and treatment plan per primary provider in the Main ED. 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 symptoms began after eating anabela/grapes which she also consumed yesterday without any reaction. also endorses chest tightness. no difficulty breathing or throat tingling. PE/vitals: Noted swelling to upper lip. Airway patent. Talking in complete sentences. Plan: ekg, IV meds ordered Medications Administered Discontinued Medications Generic Name Dose Route Start Last Admin Trade Name Freq PRN Reason Stop Dose Admin Diphenhydramine HCl 25 mg 12/18/24 01:48 12/18/24 01:59 Diphenhydramine Hcl 50 Mg/Ml Vial IVPUSH 12/18/24 01:49 25 mg ONCE ONE Administration Diphenhydramine HCl 25 mg 12/18/24 03:08 12/18/24 03:17 Diphenhydramine Hcl 50 Mg/Ml Vial IVPUSH 12/18/24 03:09 25 mg ONCE ONE Administration Famotidine 20 mg 12/18/24 01:48 12/18/24 02:05 Famotidine/Pf 20 Mg/2 Ml Vial IVPUSH 12/18/24 01:49 20 mg ONCE ONE Administration Sodium Chloride 1,000 mls @ 999 mls/hr 12/18/24 02:00 12/18/24 03:15 Ns IV 12/18/24 03:00 Infused .Q1H1M WINIFRED Infusion Methylprednisolone Sodium Succinate 60 mg 12/18/24 01:48 12/18/24 02:00 Methylprednisolone Sod Succ 125 Mg/2 Ml Vial IVPUSH 12/18/24 01:49 60 mg ONCE ONE Administration Methylprednisolone Sodium Succinate 80 mg 12/18/24 03:08 12/18/24 03:18 Methylprednisolone Sod Succ 125 Mg/2 Ml Vial IVPUSH 12/18/24 03:09 80 mg ONCE ONE Administration Medical Decision Making Medical Decision Making MDM Narrative: 3:17 AM 12/18/2024 (Debbi CROCKER): The patient is a 29-year-old female presenting to the ED reporting a history of multiple allergies, including seasonal allergies and an allergy to dog and pet dander. 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 The patient presenting to the ED for evaluation and management, denies taking any medication for her symptoms prior to arrival in the ED. The patient is unable to identify a trigger for her symptoms, reports she was eating mangoes and grapes prior to onset of symptoms, however she reports eating mangoes and grapes many times in the past without issue. The patient denies any other new foods, denies new cosmetics, detergents, shampoos, or soaps. The patient reports since onset of symptoms the chest discomfort has become less pressure and more of a squeezing. Patient denies associated stridor, wheezing, trismus, dysphagia, hemoptysis, shortness of breath, pleurisy, cough, shortness of breath, abdominal pain, nausea, vomiting, or urticaria. The patient's EKG shows no acute ischemia, however there is isolated V2 ST-elevation, seeing as patient's chest pain is not fully resolved we will repeat EKG and obtain basic laboratory evaluation with a troponin. Patient received 60 mg Solu-Medrol, 25 mg Benadryl, and 20 mg Pepcid from [facility] provider during triage process. At time of this provider's evaluation the patient reports chest discomfort has improved but not fully resolved, lip swelling has somewhat improved but not resolved, no active stridor, wheezing, posterior pharyngeal swelling or other acute findings. The patient will be treated with additional Solu-Medrol and Benadryl, and we will reassess for improvement in symptoms. Pending improvement in symptoms the patient will be discharged with a 5 day prednisone burst and a 5 day course of Pepcid. 5:27 AM 12/18/2024 (Debbi CROCKER): The patient's laboratory evaluation is reassuring, troponin is negative, repeat EKG shows no significant changes, remainder of laboratory workup shows no significant leukocytosis, anemia, electrolyte abnormality, or AUDELIA. Patient's swelling has improved both subjectively and objectively with a additional interventions. The patient feels comfortable with plan for discharge at this time, patient will be discharged as outlined above. Admission/Observation Consideration of admission/observation: Escalation of care including admission/observation considered Lab Data MDM Lab Attestation statement: I reviewed the patient's lab results. 12/18/24 03:40 12/18/24 03:40 Labs: Lab Results 12/18/24 Range/Units 03:40 WBC 10.9 H (4.8-10.8) X10*3/uL RBC 5.04 (4.20-5.50) X10*6/uL Hgb 13.3 (12.0-16.0) g/dl Hct 41.5 (37.0-47.0) % MCV 82.3 (80.0-98.0) fL MCH 26.4 L (27.0-33.0) pg MCHC 32.0 (31.0-35.0) g/dl RDW 13.8 (11.0-16.0) % Plt Count 372 (160-400) X10*3/uL MPV 10.2 (9.4-12.3) fL Immature Gran % (Auto) 0.3 (0.0-0.4) % Neut % (Auto) 67.1 (45-73) % Lymph % (Auto) 22.6 (20-40) % Williams % (Auto) 6.4 (2-11) % Eos % (Auto) 3.3 (0-4) % Baso % (Auto) 0.3 (0-2) % Lymph # (Auto) 2.5 (1.2-4.9) X10*3/uL Williams # (Auto) 0.7 (0.1-1.2) X10*3/uL Eos # (Auto) 0.4 (0.0-0.4) X10*3/uL Baso # (Auto) 0.0 (0.0-0.2) X10*3/uL Abs Immat Gran (auto) 0.03 (0.00-0.03) X10*3/uL Absolute Neuts (auto) 7.3 (2.0-8.3) x10*3/uL Absolute Nucleated RBC 0.000 (0.0-0.012) X10*3/uL Nucleated RBC % (auto) 0.0 (0.0-0.2) /100WBC Sodium 141 (135-145) mmol/L Potassium 4.1 (3.3-5.1) mmol/L Chloride 108 (96-108) mmol/L Carbon Dioxide 21 L (22-29) mmol/L Anion Gap 16 (12-20) BUN 18 H (9-16) mg/dL Creatinine 0.86 (0.5-1.4) mg/dL Estim Creat Clear Calc 84.7 Estimated GFR > 60 Random Glucose 78 (60-115) mg/dL Calcium 9.4 D (8.4-10.2) mg/dL Total Bilirubin 0.3 (0.0-1.0) mg/dL AST 33 H (5-31) U/L ALT 21 (0-31) U/L Alkaline Phosphatase 60 (39-117) U/L Troponin I High Sens < 2.7 (<3.5-17.0) ng/L Total Protein 8.4 H (6.5-8.0) g/dL Albumin 4.9 (3.5-5.0) g/dL Independent Interpretation I performed an independent interpretation of an: EKG (EKG shows sinus rhythm with a rate of 64, no ectopy. QTC 416. Compared to previous on 03/28/2024 there is question of new ST changes in just V2, no other evidence of acute ischemia or ST elevation. ) Interpretation: Repeat EKG shows redemonstration of isolated ST elevation in V2, no other elevations or reciprocal changes, ST-elevation is unchanged from previous, otherwise normal sinus rhythm with a rate of 58, no ectopy, QTC 410. Discharge Plan Discharge Clinical Impression: Allergic reaction Patient Disposition: Home, Self-Care Instructions: General Allergic Reaction (ED) Additional Instructions: Thank you for choosing [facility]'s Emergency Department for your care today. Thankfully your laboratory evaluation, EKG, and exam today are all reassuring. At this time there is no indication for admission to the hospital or continued ED observation, and it is safe to discharge you home. The exact cause of your allergic reaction is not entirely clear, however your symptoms thankfully improved following interventions in the ED and there was no indication for epinephrine administration. We are continuing to treat your symptoms by discharging you with prescriptions for Pepcid and prednisone, please take Pepcid twice daily and prednisone once daily as directed. You should take alternating (staggered) doses of ibuprofen 600mg and Tylenol 1000mg every 4 hours as needed for any additional pain. As part of your care plan you can also take Benadryl as needed for additional symptoms. However please take Benadryl, in addition to the other medications, only if absolutely necessary. This medicine can make you drowsy, you are not allowed to drive, operate heavy machinery, or be the sole care provider for children while taking this medication. Please follow up with your primary care physician for re-evaluation, additional management of your symptoms, and continued preventative care. If you do not have a primary care physician, please call the [facility] at [phone] to establish a new primary care physician. While waiting to establish your new primary care physician, you can call our Walk-in Care [facility] at [phone] for non-emergency needs. Please return to the emergency department if you develop a severe or sudden change in your symptoms, a fever over 100.4 that does not improve with Tylenol or Ibuprofen, recurrent vomiting, or any other new or worsening symptoms or concerns. Prescriptions: New prednisone 20 mg tablet 60 mg PO DAILY 5 Days Qty: 15 0RF famotidine [Pepcid] 20 mg tablet 20 mg PO BID 5 Days Qty: 10 0RF No Action albuterol sulfate 90 mcg/actuation HFA aerosol inhaler 2 puff inhalation Q6H PRN (Reason: shortness of breath or wheezing) 30 Days Qty: 6.7 0RF prednisone 20 mg tablet 40 mg PO DAILY Qty: 10 0RF benzonatate 100 mg capsule 100 mg PO TID PRN (Reason: cough) Qty: 20 0RF albuterol sulfate 2.5 mg/0.5 mL solution for nebulization 5 mg inhalation Q6H PRN (Reason: shortness of breath or wheezing) Qty: 30 0RF montelukast 10 mg tablet 10 mg PO BEDTIME Referrals: Jessica Doyle MD [Primary Care Provider, Internal Medicine] Clinical Impression: Allergic reaction Print Language: Greek
[2024-12-18 01:52] VITALS: BMI 25.2
[2024-12-18 01:55] VITALS: BP 114/65; PULSE 60; RESP 20; TEMP 36.6; O2SAT 98
--- NOTE | 2024-12-18 02:30 | PC.NURSE ---
Pt brought down to ED, during her shift she began having chest pain and went to the bathroom and noticed swelling of her lips, and also reported she felt sweaty. Pt taken to ED4. Airways patent, respirations even and unlabored. VSS. Pt denies shortness of breath. No hives or itching. She reports having environmental allergies. 20g IV placed in the RAC. Pt was placed on tele monitor, EKG obtained and pt medicated as charted.
[2024-12-18 03:00] VITALS: BP 102/69; PULSE 62; RESP 16; O2SAT 98
--- OUTSIDE RECORDS SUMMARY | 2024-12-18 03:08 | XMS_ITS | Encounter Summary ---
Author Organization [facility] Address [address] [place] [address] Care Team Providers Care Silo Filler Name Role Phone Unavailable Primary Care Provider Unavailabl e Reason for Visit * Reason Onset Date Comments pain/dental visit 02/10/2024 Encounter Details Date Type Department Care Team (Late st Contact Info) Description 02/10/2024 Telephone [facility] ADULT DENTAL [address] [place] [address] Lizzy Burrows, EVARISTOS [address], [place] [phone] pain/dental visit Social History Tobacco Use Types [...] [facility] [...] Upcoming Encounters Date Type Department Care Team ([facility] st Contact Info) Description 12/21/2024 3:00 PM EDT Office Visit [facility] ADULT DENTAL [address] [place] [address] documented as of this encounter Visit Diagnoses Not on filedocumented in this encounter
--- OUTSIDE RECORDS SUMMARY | 2024-12-18 03:08 | XMS_ITS | Encounter Summary ---
Author Organization [email or web address] [facility] Address [address] [place] [address] Care Team Providers Care It Application Architect Name Role Phone Unavailable Primary Care Provider Unavailabl e Encounter Details Date Type Department Care Team (Latest Contact Info) Description 07/20/2020 Abstract [facility] CONVERSIONS Dental, Provider, DDS Social History Tobacco [...] Care Team (Late st Contact Info) Description 12/21/2024 3:00 PM EDT Office Visit [facility] ADULT DENTAL [address] [place] [address] documented as of this encounter Visit Diagnoses Not on filedocumented in this encounter
--- OUTSIDE RECORDS SUMMARY | 2024-12-18 03:08 | XMS_ITS | Clinical Summary ---
Author Organization [employer] [facility] Address [address] [place] [address] Care Team Providers Care Rating Examiner Name Role Phone Unavailable Primary Care Provider [...] Encounters Date Type Department Care Team Description 12/14/2024 Travel from Last 3 Months Immunizations Immunization Administration Dates Next Due Tdap 08/07/2020 Social [...] Sign Reading Time Taken Comments Blood Pressure 112/70 07/09/2024 8:21 AM EDT Pulse 72 07/09/2024 8:21 AM EDT Temperature - - Respiratory Rate - - Oxygen Saturation - - Inhaled Oxygen Concentration - - Weight - - Height - - Body Mass Index - - Plan of Treatment Upcoming Encounters Date Type Department Care Team (Late st Contact Info) Description 12/21/2024 3:00 PM EDT Office Visit [facility] ADULT DENTAL [address] [place] [address] Health Maintenance Due Date Last Done Comments Depression Screening 1996 HIV Screening 1996 SDOH Screening 1996 Disability Screening 1996 Alcohol/Substance Use Screening 2008 Family Planning (PISQ) 11/20/2011 HPV Vaccines (1 - 3-dose series) 11/20/2011 Hepatitis C Screening 2014 Hepatitis B Vaccines (1 of 3 - 19+ 3-dose series) 11/20/2015 Pap Smear 2017 COVID-19 Vaccine (3 - 2024- season) 2024 07/22/2020, 06/27/2020 Influenza Vaccine (#1) 2024 11/30/2021, 2019 Dental Oral Exam 10/29/2024 04/27/2024 Dental Prophylaxis 10/29/2024 04/27/2024 Tobacco Screening 09/14/2025 09/14/2024 Dental X-Ray: Bitewings 09/15/2025 09/15/19, 04/27/2024, 03/19/2023, Additional history exists Dental X-Ray: Full Mouth 04/29/2027 04/27/2024 DTaP/Tdap/Td [...] patient's age to complete this topic Meningococcal B Vaccine Aged Out No l onger eligible based on patient's age to complete this topic Meningococcal Vaccine Aged Out No iggy cate eligible based on patient's age to complete this topic Pneumococcal Vaccine: Pediatrics (0 to 5 Years) and At-Risk Patients (6 to 49) Years Aged Out No longer eligible based on patient's age to complete this topic RSV under 20 months Aged Out No longe r eligible based on patient's age to complete this topic Rotavirus Vaccines Aged Out No longer eligible based on patient's age to complete this topic Procedures Procedure Name Priority Date/Time Associated Diagnosis Comments BITEWING - SINGLE RADIOGRAPHIC IMAGE Routine 09/14/2024 11:30 AM EDT PROPHYLAXIS - ADULT Routine 04/27/2024 8 :00 AM EST Dental calculus INTRAORAL - COMPLETE SERIES OF RADIOGRAPHIC IMAGES Routine 04/27/2024 8:00 AM EST PERIODIC ORAL EVALUATION - ESTABLISHED PATIENT Routine 04/27/2024 8:00 AM EST Dental calculus Encounter for dental examination Dental caries from Last 3 Months or Most Recently Relevant to Health Maintenance [place] [address] [place] [address]
--- OUTSIDE RECORDS SUMMARY | 2024-12-18 03:08 | XMS_ITS | Encounter Summary ---
Author Organization [employer] [facility] Address [address] [place] [address] Care Team Providers Care Chemist Pharmaceutical Name Role Phone Unavailable Primary Care Provider Unavailabl e Encounter Details Date Type Department Care Team (Late st Contact Info) Description 04/26/2022 Abstract [facility] ADULT DENTAL [address] [place] [address] Lizzy Burrows, DDS [address] [place], [place] [phone] Social History Tobacco Use Types Packs/Day Years [...] Description 12/21/2024 3:00 PM EDT Office Visit [facility] ADULT DENTAL [address] [place] [address] documented as of this encounter Visit Diagnoses Not on filedocumented in this encounter
--- OUTSIDE RECORDS SUMMARY | 2024-12-18 03:08 | XMS_ITS | Encounter Summary ---
Author Organization [employer] [facility] Address [address] [place] [address] Care Team Providers Care Plumber Apprentice Name Role Phone Unavailable Primary Care Provider Unavailabl e Reason for Visit * Reason Onset Date Comments appt 07/11/2023 Encounter Details Date Type Department Care Team (Late st Contact Info) Description 07/11/2023 Telephone [facility] ADULT DENTAL [address] [place] [address] Novoa-RamirezThomasLizzy, DDS [address] [place], [place] [phone] appt Social History Tobacco Use Types Packs/Day [...] Description 12/21/2024 3:00 PM EDT Office Visit [facility] ADULT DENTAL [address] [place] [address] documented as of this encounter Visit Diagnoses Not on filedocumented in this encounter
--- OUTSIDE RECORDS SUMMARY | 2024-12-18 03:08 | XMS_ITS | Encounter Summary ---
Author Organization [facility] Address [address] [place] [address] Care Team Providers Care Getterer Name Role Phone Unavailable Primary Care Provider Unavailabl e Encounter Details Date Type Department Care Team (Latest Contact Info) Description 12/14/2024 Travel Social History Tobacco Use Types Packs/Day Years [...] Description 12/21/2024 3:00 PM EDT Office Visit [facility] ADULT DENTAL [address] [place] [address] documented as of this encounter Visit Diagnoses Not on filedocumented in this encounter
--- OUTSIDE RECORDS SUMMARY | 2024-12-18 03:08 | XMS_ITS | Encounter Summary ---
Author Organization [employer] [facility] Address [address] [place] [address] Care Team Providers Care Automotive Parts Specialist Name Role Phone Unavailable Primary Care Provider Unavailabl e Encounter Details Date Type Department Care Team (Late st Contact Info) Description 09/14/2024 Telephone [facility] ADULT DENTAL [address] [place] [address] Alex Hanna DMD [address] [place] [address] Social History Tobacco Use Types Packs/Day Years [...] encounter Miscellaneous Notes * Telephone Encounter - Derrell Bailon - 09/14/2024 10:31 AM EDT UNABLE TO POST COVERAGE FOR TODAYS APPT documented in this encounter Plan of Treatment Upcoming Encounters Date Type Department Care Team (Late st Contact Info) Description 12/21/2024 3:00 PM EDT Office Visit [facility] ADULT DENTAL [address] [place] [address] documented as of this encounter Visit Diagnoses Not on filedocumented in this encounter
--- NOTE | 2024-12-18 03:35 | ECG_ITS ---
Test Reason : REPEAT Blood Pressure : */* mmHG Vent. Rate : 58 BPM Atrial Rate : 58 BPM P-R Int : 200 ms QRS Dur : 76 ms QT Int : 418 ms P-R-T Axes : 30 78 9 degrees QTcB Int : 410 ms Sinus bradycardia Otherwise normal ECG When compared with ECG of 18-Dec-2024 01:54, No significant change was found Referred By: Albert Wilkinson Electronically Signed By: ZARI RIVERA MD
[2024-12-18 03:45] LABS: Hematocrit 41.5 % (37.0-47.0); Hemoglobin 13.3 g/dl (12.0-16.0); Imm Gran Abs Auto 0.03 X10*3/uL (0.00-0.03); Imm Gran Pct Auto 0.3 % (0.0-0.4); Lymphocytes Absolute Auto 2.5 X10*3/uL (1.2-4.9); MANUAL DIFF FLAG NO; Mean Corpuscular HGB Conc 32.0 g/dl (31.0-35.0); Mean Corpuscular Hemoglobin 26.4 pg (27.0-33.0); Mean Corpuscular Volume 82.3 fL (80.0-98.0); NRBC Abs Auto 0.000 X10*3/uL (0.0-0.012); NRBC Pct Auto 0.0 /100WBC (0.0-0.2); Platelet Count 372 X10*3/uL (160-400); Red Blood Count 5.04 X10*6/uL (4.20-5.50); White Blood Count 10.9 X10*3/uL (4.8-10.8)
[2024-12-18 04:05] LABS: Alanine Aminotransferase 21 U/L (0-31); Albumin Level 4.9 g/dL (3.5-5.0); Alkaline Phosphatase 60 U/L (39-117); Anion Gap 16 (12-20); Aspartate Amino Transferase 33 U/L (5-31); Blood Urea Nitrogen 18 mg/dL (9-16); Calcium 9.4 mg/dL (8.4-10.2); Carbon Dioxide 21 mmol/L (22-29); Chloride 108 mmol/L (96-108); Creatinine Clr Calc Pharmacy 84.7; Estimated Glomerular Filt Rate > 60; Potassium 4.1 mmol/L (3.3-5.1); Sodium 141 mmol/L (135-145); Total Protein 8.4 g/dL (6.5-8.0)
[2024-12-18 04:11] LABS: Troponin-I High Sensitivity < 2.7 ng/L (<3.5-17.0)
[2024-12-18 05:53] VITALS: BP 102/59; PULSE 65; RESP 17; TEMP 36.6; O2SAT 96
[2024-12-18 05:54] VITALS: BP 102/59; PULSE 65; RESP 17; TEMP 36.6; O2SAT 96
== END 2024-12-18 05:56 | disposition home or self-care (01) ==
PROVIDERS: Physician Assistant; Emergency Provider Emergency Medicine; PCP Internal Medicine
DX: R07.89 Other chest pain (principal); R22.0 Localized swelling, mass and lump, head; R11.0 Nausea; R00.1 Bradycardia, unspecified; Z79.899 Other long term (current) drug therapy
CPT/HCPCS: 36415; 80053; 84484; 85025; 93005; 96361; 96374; 96375; 96376; 99284; J1200; J1308; J2919

== ENCOUNTER → 2024-12-18 01:49 | Outpatient (BNV) | payer OTHER, SELFPAY | PROVIDERS: Emergency Provider Emergency Medicine; PCP Internal Medicine; Visit Provider Internal Medicine Cardiovascular Disease | DX: J30.81 Allergic rhinitis due to animal (cat) (dog) hair and dander (principal); R00.1 Bradycardia, unspecified | CPT/HCPCS: 93010 ==

== ENCOUNTER 2024-12-28 12:53 | Outpatient (AMB) | payer OTHER, SELFPAY ==
[2024-12-28 12:58] VITALS: BP 92/60; PULSE 76; RESP 18; TEMP 36.3; O2SAT 99; BMI 24.2
--- NOTE | 2024-12-28 12:58 | MHC.PC.OV ---
Vital Signs 12/28/24 12:58 Height 5 ft 2 in Weight 132 lb 6 oz BMI 24.2 BP 92/60 Blood Pressure Location Lt brachial Position Sitting Respiration 18 Pulse 76 Pulse Source Pulse Oximeter Temp 97.3 F Temp Source Temporal Artery Scan Pulse Oximetry (%) 99 Oxygen Delivery Method Room Air Intake Visit Reasons: Annual Exam Dramatic Agent Required: No Accompanied by: Self / Same As Patient Allergies environmental allergies Allergy (Verified 12/28/24 13:17) Unknown Medication List - Last Reconciled 12/28/24 by Jessica Rogers MD albuterol sulfate 5 mg inhalation Q6H PRN albuterol sulfate 90 mcg/actuation 2 puffs inhalation Q6H PRN 30 days benzonatate 100 mg PO TID PRN famotidine (Pepcid) 20 mg PO BID 5 days montelukast 10 mg PO BEDTIME prednisone 40 mg (2 x 20 mg) PO DAILY prednisone 60 mg (3 x 20 mg) PO DAILY 5 days Tobacco use date assessed: 12/28/24 Dental Screening Dental Screen Date: 12/28/24 Did you have a dental visit in the last 12 months?: Yes Did you have a dental problem in the last 6 months where you did not have access to dental care?: No Was dental information given to patient?: Patient has dentist HPI HPI Comments History of Present Illness Details The patient is a 29 year old female presenting for her physical exam and follow-up of a recent allergic reaction. Approximately five days ago, she experienced an episode of significant lip swelling and associated chest pains. She reports having labs drawn at that time and was treated with prednisone. She is due for Tdap vaccine and declines it today. Also declines flu vaccine today. As per patient she has not had a Pap smear in over 5 years and would like to be referred to OBGYN. She also complains of chronic low back pain and would like to see pain management. Has mild recurrent major depression with a PHQ-9 of 4 that has been improving. [facility] Medical History (Updated 12/28/24 @ 13:29 by Jessica Rogers MD) Moderate major depression Mild persistent asthma Encounter for physical examination GERD (gastroesophageal reflux disease) Migraines Surgical History History of wisdom tooth extraction Family History Father No problems noted. Mother No problems noted. Maternal Grandmother No problems noted. Paternal Grandmother Diabetes Hypertension Paternal Aunt Hypertension Diabetes Social History Housing: Apartment Alcohol intake: current Alcohol intake frequency: holidays/special occasions only Alcohol type: wine Patient Tobacco Use Status: Never used Tobacco e-Cigarette/Vaping Use: Never Used Second Hand Smoke Exposure: Yes Substance Use Type: Marijuana service: No Current occupational status: employed Current occupational exposures/hazards: No Cognitive needs: No Hearing needs: No Vision needs: Yes Questionnaire PHQ-9 Over the last 2 weeks, how often have you been bothered by any of the following problems? 1. Little interest or pleasure in doing things: several days 2. Feeling down, depressed, or hopeless: several days 3. Trouble falling or staying asleep, or sleeping too much: several days 4. Feeling tired or having little energy: not at all 5. Poor appetite or overeating: not at all 6. Feeling bad about yourself - or that you are a failure or have let yourself or your family down: not at all 7. Trouble concentrating on things, such as reading the newspaper or watching television: several days 8. Moving or speaking so slowly that other people could have noticed. Or the opposite - being so fidgety or restless that you have been moving around a lot more than usual: not at all 9. Thoughts that you would be better off or of hurting yourself in some way: not at all Total score: 4 Depression Screening Interpretation: Positive Depression Screening Follow-up: Existing condition and Follow-up Visit Requested Depression Screening Done: Yes 43095 - PHQ-9 Billing: Yes Source: Developed by Drs. Delvis Ivory, Kim Ibrahim, Tom Bennett and colleagues, with an educational phuong from [employer]. Thrive Questionnaire Date Thrive assessed: 03/09/24 I am a: Patient What is your living situation today?: I have a steady place to live Within the past 12 months, did the food you bought not last and you didn't have the money to get more?: I choose not to answer this question Within the past 12 months, did you worry whether your food would run out before you got money to buy more?: I choose not to answer this question Do you have trouble paying for medicines?: I choose not to answer this question Do you have trouble getting transportation to medical appointments?: I choose not to answer this question Do you have trouble paying your heating and electricity bill?: I choose not to answer this question Do you have trouble taking care of your child, family member or friend?: I choose not to answer this question Do you have trouble with day-to-day activities such as bathing, preparing meals, shopping, managing finances, etc.?: I choose not to answer this question Are you currently unemployed and looking for a job?: I choose not to answer this question Are you interested in more education?: Yes Please select the resources that you would like help with: Job search/training Currently or been in a relationship where the following occur: No concerns reported THRIVE Score: 0 AUDIT C Alcohol Use Questionnaire (AUDIT-C) 1. How often do you have a drink containing alcohol?: Monthly or less 2. How many drinks containing alcohol do you have on a typical day when you are drinking?: 1 or 2 3. How often do you have six or more drinks on one occasion?: Never Total Score: 1 Score Reviewed/Action Taken: No DIGNA-7 AMB Questionnaire DIGNA-7 Date DIGNA - 7 assessed: 06/18/24 Feeling nervous, anxious, or on edge: 0 = Not at all Not being able to stop or control worryin = Not at all Worrying too much about different things: 1 = Several days Trouble relaxin = Several days Being so restless that it is hard to sit still: 1 = Several days Becoming easily annoyed or irritable: 1 = Several days Feeling afraid as if something awful might happen: 0 = Not at all Total DIGNA-7 score (0-4 normal; 5-9 mild; 10-14 moderate; 15-21 severe): 4 Source: Developed by Drs. Delvis Ivory, Kim Ibrahim, Tom Bennett and colleagues, with an educational phuong from [employer] DIGNA-7 Assessment Billing DIGNA-7 Assessment Tool: DIGNA-7 Assessment 25101 Review of Systems Const All systems reviewed & are unremarkable except as noted in HPI and below Card Denies chest pain at rest, Denies chest pain with activity, Denies edema, Denies irregular heart rhythm, Denies claudication, Denies dyspnea, Denies dyspnea on exertion, Denies orthopnea, Denies paroxysmal nocturnal dyspnea and Denies slow heart rate Resp Denies cough, Denies dyspnea and Denies dyspnea on exertion GI Denies abdominal pain, Denies change in bowel habits, Denies excessive flatus, Denies nausea and Denies vomiting Denies urinary incontinence, Denies urinary hesitancy and Denies urinary urgency Musc Denies abnormal gait, Denies atrophy, Denies deformity and Denies limited range of motion Skin/Breast Denies bleeding lesions, Denies changing lesions and Denies rash Neuro Denies abnormal gait, Denies behavioral changes, Denies confusion and Denies lack of coordination Psych Denies behavioral changes and Denies confusion Endo Denies cold intolerance Physical exam (Primary Care) Vital Signs: Last Vital Signs Temp 97.3 F 12/28/24 12:58 Pulse 76 12/28/24 12:58 Resp 18 12/28/24 12:58 BP 92/60 12/28/24 12:58 Pulse Ox 99 12/28/24 12:58 Oxygen Delivery Method Room Air 12/28/24 12:58 BMI result Body Mass Index 24.2 Tobacco/Smoking Status: Tobacco use Status Tobacco use date assessed 12/28/24 12/28/24 13:09 Patient Tobacco Use Status Never used Tobacco 12/28/24 13:09 e-Cigarette/Vaping Use Never Used 12/28/24 13:09 PHQ-9: PHQ-9 Score PHQ-9: Total score 4 12/28/24 13:09 Depression Screening Interpretation: Positive Depression Screening Follow-up: Existing condition and Follow-up Visit Requested Thrive Assessment: Date of Thrive Assessment Date Thrive assessed 03/09/24 12/28/24 13:09 Currently or been in a relationship where the following occur: No concerns reported Const General: No confusion Orientation/consciousness: patient oriented x3 and No confusion HENMT Head: Yes normal to inspection, Yes normocephalic and Yes atraumatic Ears: external ears normal Eyes General: appearance normal, both eyes and all related structures Eyelids: Yes eyelids normal Conjunctivae: conjunctivae normal Neck Neck: Yes normal visual inspection and Yes supple Resp Effort & Inspection: normal respiratory effort Auscultation: clear to auscultation bilaterally Cardio Jugular venous distension: no JVD Rate: regular rate Rhythm: regular rhythm Heart sounds: S1 normal heart sound present and S2 normal heart sound present GI Inspection: Yes normal to inspection Palpation (GI): Soft to palpation and nontender Auscultation: normal bowel sounds Skin General skin exam: no rashes or lesions noted Neuro General: patient oriented x3, no focal motor deficits and No confusion Extrem General: Yes full ROM Psych Appearance: grossly normal Coding Level of Care Code Est Pt Level 3 (39342) Est Pt Prev Care 18-39y(09263) Diagnoses Encounter for physical examination Z00.00 Allergic reaction T78.40XA Mild recurrent major depression F33.0 Chronic lumbar pain M54.50; G89.29 Additional Codes PHQ-9 - 34686 - PHQ-9 Billing: Yes ([id number]) DIGNA-7 Assessment Billing - DIGNA-7 Assessment Tool: DIGNA-7 Assessment 26622 ([id number]) Time Spent (min) 32 Assessment & Plan Assessment & Plan (1) Encounter for physical examination: Code(s): Z00.00 - Encounter for general adult medical examination without abnormal findings Category: Medical (2) Allergic reaction: Code(s): T78.40XA - Allergy, unspecified, initial encounter Category: Medical (3) Mild recurrent major depression: Code(s): F33.0 - Major depressive disorder, recurrent, mild Category: Medical (4) Chronic lumbar pain: Code(s): M54.50 - Low back pain, unspecified; G89.29 - Other chronic pain Category: Medical Plan Repeat physical exam in a year. Advised to do flu vaccine and Tdap vaccine at her early catheters convenience. Referred to OBGYN for Pap smear. I refer her to an director of athletics and sent EpiPen. I also refer her to pain management for her chronic low back pain. Orders: Orders Lipid Panel Today Z00.00 - Encounter for general adult medical examination without abnormal findings Comprehensive Goff. Panel Fast Today Z00.00 - Encounter for general adult medical examination without abnormal findings Referrals Allergy & Immunology Referral T78.40XA - Allergy, unspecified, initial encounter PLANNING COORDINATOR Referral Z12.4 - Encounter for screening for malignant neoplasm of cervix Pain Management Referral G89.29 - Other chronic pain, M54.50 - Low back pain, unspecified Medications: New epinephrine (EpiPen 2-Ashish) for 2 doses 0.3 mg (0.3 mL) IM Q10M PRN 2 ea 0RF anaphylaxis 30 days T78.40XA - Allergy, unspecified, initial encounter Discontinued benzonatate Discontinued Reason: Patient Completed Course 100 mg PO TID PRN 20 caps 0RF cough
== END 2024-12-28 13:28 | disposition home or self-care (01) ==
LOC: HO.HMCH 12:54
PROVIDERS: PCP Internal Medicine; Visit Provider Internal Medicine
DX: Z00.00 Encounter for general adult medical examination without abnormal findings (principal); T78.40XA Allergy, unspecified, initial encounter; F33.0 Major depressive disorder, recurrent, mild; M54.50 Low back pain, unspecified; G89.29 Other chronic pain

== ENCOUNTER → 2024-12-28 12:53 | Outpatient (BNVA) | payer OTHER, SELFPAY | PROVIDERS: PCP Internal Medicine; Visit Provider Internal Medicine | DX: Z00.00 Encounter for general adult medical examination without abnormal findings (principal); F33.0 Major depressive disorder, recurrent, mild; M54.50 Low back pain, unspecified; G89.29 Other chronic pain; Z91.09 Other allergy status, other than to drugs and biological substances | CPT/HCPCS: 96127; 99212; 99395 ==

== ENCOUNTER 2025-01-15 14:54 | Outpatient (REF) | payer OTHER, SELFPAY | END 2025-01-15 14:55 | disposition home or self-care (01) | LOC: HO.LAB 14:54 | PROVIDERS: PCP Internal Medicine; Visit Provider Internal Medicine | DX: G89.29 Other chronic pain (principal); M54.41 Lumbago with sciatica, right side | CPT/HCPCS: 99202 ==

== ENCOUNTER 2025-01-15 14:54 | Outpatient (AMB) | payer OTHER, SELFPAY ==
--- NOTE | 2025-01-15 14:57 | MHC.OFFVIS ---
Vital Signs 01/15/25 14:58 Height 5 ft 2 in Weight 132 lb BMI 24.1 BP 108/62 Blood Pressure Location Lt brachial Position Sitting Respiration 16 Pulse 80 Pulse Source Pulse Oximeter Pulse Oximetry (%) 98 Oxygen Delivery Method Room Air Intake Visit Reasons: Low back pain, unspecified Photographic Intelligence Officer Required: No Accompanied by: Self / Same As Patient Allergies environmental allergies Allergy (Verified 01/15/25 15:00) Unknown HPI Comments Details: The patient is a 29-year-old individual presenting with chronic back pain and associated symptoms. The back pain began four years ago following a fall while rollerblading, which resulted in an injury to the coccyx. Initially, the pain was mild but progressively worsened over the past year without any specific inciting event. The pain is intermittent, occurring approximately three days a week, and can reach a severity of 10 out of 10. The patient experiences numbness in the right toes and occasionally in the entire leg, which has led to episodes of weakness and inability to stand. 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 The patient has not had recent imaging studies since the initial x-rays taken after the fall in [place]. The patient has been using muscle relaxants to manage the pain with good effect, although the specific medication is unknown. Also taking tylenol and ibuprofen as needed. Denies red flag symptoms including new loss of bowel, bladder or saddle anesthesia. - Onset: Pain began four years ago after a fall while rollerblading. - Quality: Intermittent, severe pain reaching 10 out of 10. - Location: Primarily in the back, with numbness in the right toes and leg. - Radiation: Occasional numbness in the entire right leg. - Exacerbating factors: Physical activity and long work hours. - Relieving factors: Use of muscle relaxants. - Affect: Pain impacts daily activities and work performance. - Analgesia: Uses muscle relaxants from a family member, specific medication unknown. - Adverse Effects: None reported from current medication use. 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 - Aberrant Drug Related Behaviors: Obtaining muscle relaxants from a non-prescribed source. [facility] Medical History (Updated 12/28/24 @ 13:29 by Jessica Rogers MD) Moderate major depression Mild persistent asthma Encounter for physical examination GERD (gastroesophageal reflux disease) Migraines Surgical History History of wisdom tooth extraction Family History Father No problems noted. Mother No problems noted. Maternal Grandmother No problems noted. Paternal Grandmother Diabetes Hypertension Paternal Aunt Hypertension Diabetes Social History Housing: Apartment Alcohol intake: current Alcohol intake frequency: holidays/special occasions only Alcohol type: wine Patient Tobacco Use Status: Never used Tobacco e-Cigarette/Vaping Use: Never Used Second Hand Smoke Exposure: Yes Substance Use Type: Marijuana service: No Current occupational status: employed Current occupational exposures/hazards: No Cognitive needs: No Hearing needs: No Vision needs: Yes Review of Systems Narrative - Musculoskeletal: Reports chronic back pain, intermittent numbness in right toes and leg. - Neurological: Reports episodes of leg weakness and inability to stand. Physical Exam Exam Exam: General: awake, alert, oriented. Answers questions appropriately. Fully engaged in examination. Skin: warm, dry, intact HEENT: Normocephalic. Hearing intact. Cardiac: External chest normal in appearance. Respiratory: No cough, audible wheezing or stridor. Abdomen: without gross distension. MS: No obvious swelling or deformities. SLR neg bilaterally BLE strength 5/5 nontender of PSIS Able to transition from sit to stand unassisted. Ambulates with bilaterally normal heel strike and toe off Neurological: Oriented to person, place, time and situation. Thought process intact. No gait abnormalities appreciated. Psychiatric: Appropriate mood and affect. Good judgment and insight. Vital Signs: Last Vital Signs Pulse 80 01/15/25 14:58 Resp 16 01/15/25 14:58 BP 108/62 01/15/25 14:58 Pulse Ox 98 01/15/25 14:58 Oxygen Delivery Method Room Air 01/15/25 14:58 BMI result Body Mass Index 24.1 Assessment & Plan Assessment & Plan (1) Chronic lumbar pain: Code(s): M54.50 - Low back pain, unspecified; G89.29 - Other chronic pain Category: Medical (2) Right sided sciatica: Code(s): M54.31 - Sciatica, right side Category: Medical Plan The plan includes ordering an x-ray of the patient's back to assess for any structural abnormalities that may be contributing to the chronic pain. Physical therapy is recommended to help manage the pain and improve function, with sessions scheduled twice a week for six weeks. The patient is advised to perform prescribed exercises at home to aid recovery. A prescription for a muscle relaxant will be provided to ensure the patient is using a medication that is safe and appropriate for their condition. The patient is instructed to avoid taking the muscle relaxant before work due to potential drowsiness. The patient is advised to monitor symptoms and report any worsening of pain, increased numbness, or new symptoms such as loss of bladder or bowel control. Follow-up is planned after the completion of physical therapy to reassess the patient's condition and determine if further interventions, such as an MRI or injections, are necessary. Patient was informed and verbally consented to the use of an ambient scribe for clinic note documentation during this visit. Orders: Orders XR lumbar spine 4V min Today G89.29 - Other chronic pain, M54.50 - Low back pain, unspecified PT Evaluation and Treatment 01/15/25 G89.29 - Other chronic pain, M54.31 - Sciatica, right side, M54.50 - Low back pain, unspecified Medications: New methocarbamol No driving while taking this medication. Do no take with alcohol or other COMMISSIONER OF INTERNAL REVENUE Depressants 500 mg PO TID PRN 90 tabs 1RF muscle spasm Patient Instructions: - Schedule and attend x-ray appointment for back evaluation. - Attend physical therapy sessions twice a week for six weeks. - Perform prescribed exercises at home regularly. - Take muscle relaxant only at home and avoid before work. - Monitor symptoms and report any worsening or new symptoms immediately. - Follow up after completing physical therapy for reassessment. Coding Level of Care Code New Pt Level 4 (29424) Complex visit Add On G2211 Diagnoses Chronic lumbar pain M54.50; G89.29 Right sided sciatica M54.31
[2025-01-15 14:58] VITALS: BP 108/62; PULSE 80; RESP 16; O2SAT 98; BMI 24.1
--- OUTSIDE RECORDS SUMMARY | 2025-01-15 15:08 | XMS_ITS | Encounter Summary ---
Author Organization [facility] Address [address] [place] [address] Care Team Providers Care Business Systems Lead Name Role Phone Unavailable Primary Care Provider Unavailabl e Reason for Visit * Reason Onset Date Comments appt 07/11/2023 Encounter Details Date Type Department Care Team (Late st Contact Info) Description 07/11/2023 Telephone [facility] [address] [place] [address] Lizzy Burrows, DDS [address], [place] [phone] appt Social History Tobacco Use Types Packs/Day [...] Miscellaneous Notes * Telephone Encounter - Lesly Coolye - 07/11/2023 3:29 PM EDT Patient called in to check in on status of appt. Pls reach out to patient DR documented in this encounter Plan of Treatment Upcoming Encounters Date Type Department Care Team (Late st Contact Info) Description 03/12/2025 2:15 PM EST Office Visit [facility] [address] [place] [address] Nicki Celaya documented as of this encounter Visit Diagnoses Not on filedocumented in this encounter
--- OUTSIDE RECORDS SUMMARY | 2025-01-15 15:08 | XMS_ITS | Encounter Summary ---
Author Organization [facility] Address [address] [place] [address] Care Team Providers Care Tax Investigator Name Role Phone Unavailable Primary Care Provider Unavailabl e Reason for Visit * Reason Onset Date Comments pain/dental visit 02/10/2024 Encounter Details Date Type Department Care Team (Late st Contact Info) Description 02/10/2024 Telephone [facility] [address] [place] [address] Lizzy Burrows, EVARISTOS [address] [place], [place] [phone] pain/dental visit Social History Tobacco Use Types [...] [facility] [...] Description 03/12/2025 2:15 PM EST Office Visit [facility] [address] [place] [address] Nicki Celaya documented as of this encounter Visit Diagnoses Not on filedocumented in this encounter
--- OUTSIDE RECORDS SUMMARY | 2025-01-15 15:08 | XMS_ITS | Clinical Summary ---
Author Organization [facility] Address [address] [place] [address] Care Team Providers Care Industrial Cook Name Role Phone Unavailable Primary Care Provider [...] Encounters Date Type Department Care Team Description 01/08/2025 3:00 PM EST Office Visit [facility] [address] [place] [address] Alex Hanna DMD 01/07/2025 3:00 PM EST Office Visit [facility] [address] [place] [address] Alex Hanna DMD 12/28/2024 2:00 PM EST Office Visit [facility] [address] [place] [address] Alex Hanna DMD 12/21/2024 3:00 PM EDT Office Visit [facility] [address] [place] [address] Alex Hanna DMD 12/14/2024 Travel from Last 3 Months Immunizations Immunization Administration Dates Next Due Tdap 08/07/2020 Social History Tobacco Use Types Packs/Day Years Used Date Smoking Tobacco: Never Smokeless Tobacco: Never Tobacco Cessation:Counseling Given: Not Answered Alcohol Use Standard Drinks/Week Comments Yes 0 (1 standard drink = 0.6 oz pur e alcohol) Comments Unknown Sex and Gender Information Value Date Recorded Sex Assigned at Female 12/25/2021 10:37 AM EDT Legal Sex Female 10:37 AM EDT Gender Identity Female 12/25/2021 10:37 AM EDT Sexual Orientation Straight 12/25/2021 10 :37 AM EDT Last Filed Vital Signs Vital Sign Reading Time Taken Comments Blood Pressure 116/74 01/08/2025 2:50 PM EST Pulse 72 07/09/2024 8:21 AM EDT Temperature - - Respiratory Rate - - Oxygen Saturation - - Inhaled Oxygen Concentration - - Weight - - Height - - Body Mass Index - - Plan of Treatment Upcoming Encounters Date Type Department Care Team (Late st Contact Info) Description 03/12/2025 2:15 PM EST Office Visit [facility] [address] [place] [address] Nicki Celaya Health Maintenance Due Date Last Done Comments Depression Screening 1996 HIV Screening 1996 SDOH Screening 1996 Disability Screening 1996 Alcohol/Substance Use Screening 2008 Family Planning (PISQ) 11/20/2011 HPV Vaccines (1 - 3-dose series) 11/20/2011 Hepatitis C Screening 2014 Hepatitis B Vaccines (1 of 3 - 19+ 3-dose series) 11/20/2015 Pap Smear 2017 COVID-19 Vaccine ( - 2024- season) 2024 07/22/2020, 06/27/2020 Influenza Vaccine (#1) 2024 12/09/2019 Dental Oral Exam 10/29/2024 04/27/2024 Dental Prophylaxis 10/29/2024 04/27/2024 Dental X-Ray: Bitewings 09/15/2025 09/15/19, 04/27/2024, 03/19/2023, Additional history exists Tobacco Screening 01/08/2026 01/08/2025 Dental X-Ray: Full Mouth 04/29/2027 04/27/2024 DTaP/Tdap/Td [...] Procedure Name Priority Date/Time Associated Diagnosis Comments CASE PRESENTATION, DETAILED AND EXTENSIVE TREATMENT PLANNING Routine 01/08/2025 3:00 PM EST 14 MOL RESIN-BASED COMPOSITE - 3 SURF, POSTERIOR Routine 01/08/2025 3:00 PM EST NO CHARGE VISIT Routine 01/07/2025 3:00 PM EST INTRAORAL - PERIAPICAL FIRST RADIOGRAPHIC IMAGE Routine 12/28/2024 2:00 PM EST LIMITED ORAL EVALUATION - PROBLEM FOCUSED Routine 12/28/2024 2:00 PM EST 14 LIMITED ORAL EVALUATION - PROBLEM FOCUSED Routine 12/21/2024 3:00 PM EDT BITEWING - SINGLE RADIOGRAPHIC IMAGE Routine 09/14/2024 [...] Most Recently Relevant to Health Maintenance Insurance DENTAL - [place] PARTIAL (MEDICAID) [facility] [facility] [place]
--- OUTSIDE RECORDS SUMMARY | 2025-01-15 15:08 | XMS_ITS | Encounter Summary ---
Author Organization [facility] Address [address] [place] [address] Care Team Providers Care Data Deliverables Manager Name Role Phone Unavailable Primary Care Provider Unavailabl e Encounter Details Date Type Department Care Team (Late st Contact Info) Description 09/14/[address] [facility] [address] [place], [place] [phone] Alex Hanna DMD [address] [place], [place] [phone] Social History Tobacco Use Types Packs/Day Years [...] Description 03/12/2025 2:15 PM EST Office Visit [facility] [address] [place] [address] Nicki Celaya documented as of this encounter Visit Diagnoses Not on filedocumented in this encounter
--- OUTSIDE RECORDS SUMMARY | 2025-01-15 15:08 | XMS_ITS | Encounter Summary ---
Author Organization [facility] Address [address] [facility] 7t [place] [address] Care Team Providers Care Strip Deburrer Name Role Phone Unavailable Primary Care Provider Unavailabl e Encounter Details Date Type Department Care Team (Late st Contact Info) Description 04/26/2022 Abstract [facility] ADULT DENTAL [address] [place], [place] [phone] Lizzy Burrows DDS [address] [place], [place] [phone] Social History Tobacco Use Types Packs/Day Years [...] 2:15 PM EST Office Visit [facility] ADULT DENTAL [address] [place] [address] Nicki Celaya documented as of this encounter Visit Diagnoses Not on filedocumented in this encounter
--- OUTSIDE RECORDS SUMMARY | 2025-01-15 15:08 | XMS_ITS | Encounter Summary ---
Author Organization [facility] Address [address] [facility] 7t [place] [address] Care Team Providers Care Medical Scientist Name Role Phone Unavailable Primary Care Provider Unavailabl e Encounter Details Date Type Department Care Team (Latest Contact Info) Description 07/20/2020 Abstract [facility] CONVERSIONS Dental, Provider, DDS Social History Tobacco [...] Description 03/12/2025 2:15 PM EST Office Visit [facility] ADULT DENTAL [address] [place] [address] Nicki Celaya documented as of this encounter Visit Diagnoses Not on filedocumented in this encounter
== END 2025-01-15 15:32 | disposition home or self-care (01) ==
LOC: HO.PMC 14:55
PROVIDERS: PCP Internal Medicine; Visit Provider Registered Nurse Emergency
DX: M54.50 Low back pain, unspecified (principal); G89.29 Other chronic pain; M54.31 Sciatica, right side
CPT/HCPCS: 99204

== ENCOUNTER 2025-01-25 16:06 | Outpatient (REF) | payer OTHER, SELFPAY ==
--- NOTE | ~2025-01-25 | XR_ITS ---
EXAMINATION: XR LUMBOSACRAL SPINE CLINICAL INFORMATION: M54.50 - Low back pain, unspecified COMPARISON: None available. Correlation made with CT abdomen and pelvis 03/03/2024. TECHNIQUE: 5 views of the lumbar spine, inclusive of bilateral oblique views, were obtained. FINDINGS: There is no scoliosis. There is a normal lumbar lordosis. There is no subluxation. There is no fracture, compression deformity, or suspicious bone lesion. Disc spaces are preserved at all levels. Facets are normally aligned without significant facet arthrosis. There is no evidence of pars defect. The sacrum is intact. The SI joints appear normal. XR/XR lumbar spine 4V min IMPRESSION: Normal lumbar spine. Electronically signed by: Albert Rubin MD 01/25/2025 04:42 PM [facility]
--- OUTSIDE RECORDS SUMMARY | 2025-01-25 18:39 | XMS_ITS | Encounter Summary ---
Author Organization [facility] Address [address] [facility] 7[address] [place] [address] Care Team Providers Care Head Of Research & Insights Name Role Phone Unavailable Primary Care Provider Unavailabl e Encounter Details Date Type Department Care Team (Late st Contact Info) Description 04/26/2022 Abstract [facility] ADULT DENTAL [address] [place], [place] [phone] Lizzy Burrows DDS [address] [place], [place] [phone] Social History Tobacco Use Types Packs/Day Years [...] Description 03/12/2025 2:15 PM EST Office Visit [facility] [address] [place] [address] Nicki Celaya documented as of this encounter Visit Diagnoses Not on filedocumented in this encounter
--- OUTSIDE RECORDS SUMMARY | 2025-01-25 18:39 | XMS_ITS | Clinical Summary ---
Author Organization [facility] [facility] Address [address] [place] [address] Care Team Providers Care Weigh And Charge Worker Name Role Phone Unavailable Primary Care Provider [...] Description 01/08/2025 3:00 PM EST Office Visit [facility] ADULT DENTAL [address] [place] [address] Alex Hanna DMD 01/07/2025 3:00 PM EST Office Visit [facility] ADULT DENTAL [address] [place] [address] Alex Hanna DMD 12/28/2024 2:00 PM EST Office Visit [facility] ADULT DENTAL [address] [place] [address] Alex Hanna DMD 12/21/2024 3:00 PM EDT Office Visit [facility] ADULT DENTAL [address] [place] [address] Alex Hanna DMD 12/14/2024 Travel from Last [...] Description 03/12/2025 2:15 PM EST Office Visit [facility] ADULT DENTAL [address] [place] [address] Nicki Celaya Health Maintenance Due Date Last [...] - HSN PARTIAL (MEDICAID) [place] D[facility] OF [place]
--- OUTSIDE RECORDS SUMMARY | 2025-01-25 18:39 | XMS_ITS | Encounter Summary ---
Author Organization [facility] Address [address] [facility] 7t [place] [address] Care Team Providers Care Mold Tooler Name Role Phone Unavailable Primary Care Provider Unavailabl e Reason for Visit * Reason Onset Date Comments pain/dental visit 02/10/2024 Encounter Details Date Type Department Care Team (Late st Contact Info) Description 02/10/2024 Telephone [facility] ADULT DENTAL [address] [place] [address] Lizzy Burrows, EVARISTOS [address] [place], [place] [phone] pain/dental visit Social History Tobacco Use Types [...] [facility] to [facility] [address] [place] [address] Nicki Celaya documented as of this encounter Visit Diagnoses Not on filedocumented in this encounter
--- OUTSIDE RECORDS SUMMARY | 2025-01-25 18:39 | XMS_ITS | Encounter Summary ---
Author Organization [facility] Address [address] [facility] 7t [place] [address] Care Team Providers Care Certified Forklift Operator Name Role Phone Unavailable Primary Care Provider Unavailabl e Encounter Details Date Type Department Care Team (Late st Contact Info) Description 09/14/2024 Telephone [facility] ADULT DENTAL [address] [place], [place] [phone] Alex Hanna DMD [address] [place], [place] [phone] Social History Tobacco Use Types Packs/Day Years [...] Description 03/12/2025 2:15 PM EST Office Visit [facility] ADULT DENTAL [address] [place] [address] Nicki Celaya documented as of this encounter Visit Diagnoses Not on filedocumented in this encounter
--- OUTSIDE RECORDS SUMMARY | 2025-01-25 18:39 | XMS_ITS | Encounter Summary ---
Author Organization [facility] Address [address] [facility] [address] [place] [address] Care Team Providers Care Table Assembler Name Role Phone Unavailable Primary Care Provider Unavailabl e Reason for Visit * Reason Onset Date Comments appt 07/11/2023 Encounter Details Date Type Department Care Team (Late st Contact Info) Description 07/11/2023 Telephone [facility] ADULT DENTAL [address] [place] [address] Lizzy Burrows, DDS [address] [place], [place] [phone] appt Social History Tobacco Use Types Packs/Day [...] Description 03/12/2025 2:15 PM EST Office Visit [facility] ADULT DENTAL [address] [place] [address] Nicki Celaya documented as of this encounter Visit Diagnoses Not on filedocumented in this encounter
--- OUTSIDE RECORDS SUMMARY | 2025-01-25 18:39 | XMS_ITS | Encounter Summary ---
Author Organization [facility] Address [address] [facility] [address]t [place] [address] Care Team Providers Care Dinkey Engine Firer Name Role Phone Unavailable Primary Care Provider Unavailabl e Encounter Details Date Type Department Care Team (Latest Contact Info) Description 07/20/2020 Abstract [facility] CONVERSIONS Dental, Provider, DDS Social History Tobacco [...] Description 03/12/2025 2:15 PM EST Office Visit [facility] ADULT DENTAL [address] [place] [address] Nicki Celaya documented as of this encounter Visit Diagnoses Not on filedocumented in this encounter
== END 2025-01-25 16:07 | disposition home or self-care (01) ==
LOC: HO.XRAY 16:06
PROVIDERS: PCP Internal Medicine; Visit Provider Registered Nurse Emergency
DX: G89.29 Other chronic pain (principal); M54.50 Low back pain, unspecified
CPT/HCPCS: 72110

== ENCOUNTER → 2025-01-25 16:19 | Outpatient (BNV) | payer OTHER, SELFPAY | PROVIDERS: PCP Internal Medicine; Visit Provider Radiology Diagnostic Radiology | DX: M54.50 Low back pain, unspecified (principal) | CPT/HCPCS: 72110 ==

== ENCOUNTER 2025-02-08 09:31 | Emergency (ER) | payer OTHER, SELFPAY ==
[2025-02-08 10:11] VITALS: BP 119/59; PULSE 92; RESP 18; TEMP 37.3; O2SAT 97; BMI 24.0
--- NOTE | 2025-02-08 10:13 | ED.GENADULT ---
HPI - General Adult General Chief complaint: General Medical Stated complaint: bodyaches, SOB, vomiting, not eating Time Seen by Provider: 02/08/25 11:53 Source: patient and old records reviewed Mode of arrival: ambulatory Limitations: no limitations History of Present Illness ED Provider: LAYLA RENTERIA narrative: 21-year-old female past history of depression, chronic back pain, asthma, anxiety she states she went to work green party on Saturday and after that started to feel sick. She notes she did not get her vaccine this year. She has had nausea, vomiting, body aches, feels short of breath at times to asthma. She denies any home sick contacts, recent travel, recent procedures. 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 She is able to tolerate PO. On arrival now she is not short of breath and has no chest pain. MD complaint: Viral syndrome Onset (ago): day(s) (2) Location: head and mouth Radiation: non-radiation Severity: moderate Quality: aching Pain Consistency: constant Relieving factors: none Exacerbating factors: movement Associated symptoms: fever/chills, headaches, loss of appetite, malaise and nausea/vomiting Treatments prior to arrival: none Related Data Home Medications ?Medication ?Instructions ?Recorded ?Confirmed cetirizine 5 mg tablet (Zyrtec) 5 mg PO DAILY PRN 01/15/25 Previous Rx's ?Medication ?Instructions ?Recorded albuterol sulfate 2.5 mg/0.5 mL 5 mg inhalation Q6H PRN shortness 03/29/24 solution for nebulization of breath or wheezing #30 ea albuterol sulfate 90 mcg/actuation 2 puff inhalation Q6H PRN 04/12/24 aerosol inhaler shortness of breath or wheezing 30 days #6.7 grams famotidine 20 mg tablet (Pepcid) 20 mg PO BID 5 days #10 tabs 12/18/24 epinephrine 0.3 mg/0.3 mL 0.3 mg (0.3 mL) IM Q10M PRN 12/28/24 injection, auto-injector (EpiPen anaphylaxis 30 days #2 ea 2-Ashish) methocarbamol 500 mg tablet 500 mg PO TID PRN muscle spasm #90 01/15/25 tabs ondansetron 4 mg disintegrating 4 mg PO Q8H PRN nausea and 02/08/25 tablet vomiting #20 tabs oseltamivir 75 mg capsule (Tamiflu) 75 mg PO BID 5 days #10 caps 02/08/25 prednisone 20 mg tablet 40 mg (2 x 20 mg) PO DAILY 5 days 02/08/25 #10 tabs Allergies Allergy/AdvReac Type Severity Reaction Status Date / Time environmental allergies Allergy Unknown Verified 02/08/25 10:14 Review of Systems Review of Systems: Yes all other systems are reviewed and are negative PMFSH Past Medical History Attestation statement: The following information was validated with the patient. Source: old records reviewed Medical History Moderate major depression Mild persistent asthma Encounter for physical examination GERD (gastroesophageal reflux disease) Migraines Surgical History History of wisdom tooth extraction Family History Family History Father No problems noted. Mother No problems noted. Maternal Grandmother No problems noted. Paternal Grandmother Diabetes Hypertension Paternal Aunt Hypertension Diabetes Social History Social History Housing: Apartment Alcohol intake: current Alcohol intake frequency: holidays/special occasions only Alcohol type: wine Patient Tobacco Use Status: Never used Tobacco e-Cigarette/Vaping Use: Never Used Second Hand Smoke Exposure: Yes Substance Use Type: Marijuana Advance Directives: No Advance Directives Information Provided: No service: No Current occupational status: employed Current occupational exposures/hazards: No Cognitive needs: No Hearing needs: No Vision needs: Yes Physical Exam ED Vital Signs: Vital Signs - 24 hr 02/08/25 10:11 Temperature 99.2 F Pulse Rate 92 Respiratory Rate 18 Blood Pressure 119/59 L Pulse Oximetry 97 Oxygen Delivery Method Room Air BMI result Body Mass Index 24.0 Appearance: Alert. Oriented X3. No acute distress. Eyes: Pupils equal, round and reactive to light. ENT: Pharynx normal. Neck: Normal inspection. Neck supple. CVS: Normal heart rate and rhythm. Pulses normal. Respiratory: No respiratory distress. Breath sounds normal. Abdomen: Soft and nontender. Skin: Skin warm and dry. Normal skin color. Normal skin turgor. Extremities: No lower extremity edema. No calf ttp Neuro: Oriented X 3. No motor deficit. No sensory deficit. CN2-12 intact Course Course Course Narrative: Rapid medical examination performed in triage by Maria Isabel Camargo PA-C: Patient is a 29 year old assigned female at presenting to the emergency department with body aches and nausea. Detailed physical exam and review of systems are deferred to the mexican food machine tender. Labs and swabs ordered. Patient placed back in the waiting room pending room availability and results. Medications Administered Discontinued Medications Generic Name Dose Route Start Last Admin Trade Name Patria PRN Reason Stop Dose Admin Ondansetron HCl 4 mg 02/08/25 10:14 02/08/25 10:17 Ondansetron Odt 4 Mg Tab.Rapdis TRANSLINGU 02/08/25 10:15 4 mg ONCE ONE Administration Medical Decision Making Medical Decision Making [facility] Narrative: 21-year-old female past medical history of asthma, anxiety, depression who is here with a viral-like illness, she has no hypoxia she has clear lungs on exam I doubt pneumonia. She does have a history of asthma she is flu A positive. Given her asthma I am going to start on Tamiflu. She was also given a script for prednisone in case she starts wheezing. 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 She is overall well-appearing and nontoxic. I do not have any concerns for other pathology such as pericarditis or myocarditis. She is well appearing. Differential Diagnosis Differential Diagnoses: The differential diagnosis associated with the presentation includes Viral syndrome, COVID, flu Admission/Observation Consideration of admission/observation: Escalation of care including admission/observation considered Lungs are clear to auscultation she has no hypoxia at this time she can be managed as an outpatient Lab Data [facility] Lab Attestation statement: I reviewed the patient's lab results. 02/08/25 11:03 02/08/25 11:00 Labs: Lab Results 02/08/25 02/08/25 Range/Units 11:00 11:03 WBC 6.3 (4.8-10.8) X10*3/uL RBC 4.74 (4.20-5.50) X10*6/uL Hgb 12.7 (12.0-16.0) g/dl Hct 38.6 (37.0-47.0) % MCV 81.4 (80.0-98.0) fL MCH 26.8 L (27.0-33.0) pg MCHC 32.9 (31.0-35.0) g/dl RDW 13.2 (11.0-16.0) % Plt Count 270 D (160-400) X10*3/uL MPV 9.7 (9.4-12.3) fL Immature Gran % (Auto) 0.3 (0.0-0.4) % Neut % (Auto) 86.2 H (45-73) % Lymph % (Auto) 6.5 L (20-40) % [place] % (Auto) 6.5 (2-11) % Eos % (Auto) 0.2 (0-4) % Baso % (Auto) 0.3 (0-2) % Lymph # (Auto) 0.4 L (1.2-4.9) X10*3/uL [place] # (Auto) 0.4 (0.1-1.2) X10*3/uL Eos # (Auto) 0.0 (0.0-0.4) X10*3/uL Baso # (Auto) 0.0 (0.0-0.2) X10*3/uL Abs Immat Gran (auto) 0.02 (0.00-0.03) X10*3/uL Absolute Neuts (auto) 5.5 (2.0-8.3) x10*3/uL Absolute Nucleated RBC 0.000 (0.0-0.012) X10*3/uL Nucleated RBC % (auto) 0.0 (0.0-0.2) /100WBC Sodium 137 (135-145) mmol/L Potassium 3.4 (3.3-5.1) mmol/L Chloride 108 (96-108) mmol/L Carbon Dioxide 21 L (22-29) mmol/L Anion Gap 10 L (12-20) BUN 9 (9-16) mg/dL Creatinine 0.80 (0.5-1.4) mg/dL Estim Creat Clear Calc 85.4 Estimated GFR > 60 Random Glucose 115 (60-115) mg/dL Calcium 9.1 (8.4-10.2) mg/dL Magnesium 1.9 (1.6-2.6) mg/dL Total Bilirubin 0.3 (0.0-1.0) mg/dL AST 41 H (5-31) U/L ALT 31 (0-31) U/L Alkaline Phosphatase 65 (39-117) U/L Total Protein 8.0 (6.5-8.0) g/dL Albumin 4.8 (3.5-5.0) g/dL Beta HCG, Quant < 2 mIU/mL Influenza Type A (PCR) POSITIVE A (Negative) Influenza Type B (PCR) NEGATIVE (Negative) RSV RNA Qual (PCR) NEGATIVE (Negative) SARS-CoV-2 RNA (RT-PCR) NEGATIVE (Negative) External Record Review External record reviewed: Outpatient record Prescription Management I considered prescription management with: Pain Medication, Antiviral and Other Discharge Plan Discharge Clinical Impression: Influenza A Patient Disposition: Home, Self-Care Instructions: Influenza (ED) Additional Instructions: Rest and stay hydrated Use your inhaler Return for any worsening symptoms such as severe chest pain, you are so short of breath he can not watch her bathroom It is okay to alter knee Tylenol Motrin for fevers and body aches. you or infective up to 7 days after the start of her symptoms Prescriptions: New prednisone 20 mg tablet 40 mg PO DAILY 5 Days Qty: 10 0RF ondansetron 4 mg tablet,disintegrating 4 mg PO Q8H PRN (Reason: nausea and vomiting) Qty: 20 0RF oseltamivir [Tamiflu] 75 mg capsule 75 mg PO BID 5 Days Qty: 10 0RF No Action albuterol sulfate 90 mcg/actuation HFA aerosol inhaler 2 puff inhalation Q6H PRN (Reason: shortness of breath or wheezing) 30 Days Qty: 6.7 0RF albuterol sulfate 2.5 mg/0.5 mL solution for nebulization 5 mg inhalation Q6H PRN (Reason: shortness of breath or wheezing) Qty: 30 0RF famotidine [Pepcid] 20 mg tablet 20 mg PO BID 5 Days Qty: 10 0RF epinephrine [EpiPen 2-Ashish] 0.3 mg/0.3 mL auto-injector 0.3 mg IM Q10M PRN (Reason: anaphylaxis) 30 Days Qty: 2 0RF Rx Instructions: for 2 doses cetirizine [Zyrtec] 5 mg tablet 5 mg PO DAILY PRN methocarbamol 500 mg tablet 500 mg PO TID PRN (Reason: muscle spasm) Qty: 90 1RF Rx Instructions: No driving while taking this medication. Do no take with alcohol or other [employer]SULT[employer] Depressants Stand Alone Forms: Work/School Release Discharge Date/Time: 02/08/25 12:33 Print Language: Finnish
[2025-02-08 11:10] LABS: MANUAL DIFF FLAG NO
[2025-02-08 11:12] LABS: Hematocrit 38.6 % (37.0-47.0); Hemoglobin 12.7 g/dl (12.0-16.0); Imm Gran Abs Auto 0.02 X10*3/uL (0.00-0.03); Imm Gran Pct Auto 0.3 % (0.0-0.4); Lymphocytes Absolute Auto 0.4 X10*3/uL (1.2-4.9); Mean Corpuscular HGB Conc 32.9 g/dl (31.0-35.0); Mean Corpuscular Hemoglobin 26.8 pg (27.0-33.0); Mean Corpuscular Volume 81.4 fL (80.0-98.0); NRBC Abs Auto 0.000 X10*3/uL (0.0-0.012); NRBC Pct Auto 0.0 /100WBC (0.0-0.2); Platelet Count 270 X10*3/uL (160-400); Red Blood Count 4.74 X10*6/uL (4.20-5.50); White Blood Count 6.3 X10*3/uL (4.8-10.8)
[2025-02-08 11:33] LABS: Calcium 9.1 mg/dL (8.4-10.2); Chloride 108 mmol/L (96-108); Potassium 3.4 mmol/L (3.3-5.1); Sodium 137 mmol/L (135-145)
[2025-02-08 11:40] LABS: Anion Gap 10 (12-20)
[2025-02-08 11:47] LABS: Alanine Aminotransferase 31 U/L (0-31); Albumin Level 4.8 g/dL (3.5-5.0); Alkaline Phosphatase 65 U/L (39-117); Aspartate Amino Transferase 41 U/L (5-31); Blood Urea Nitrogen 9 mg/dL (9-16); Carbon Dioxide 21 mmol/L (22-29); Creatinine Clr Calc Pharmacy 85.4; Estimated Glomerular Filt Rate > 60; Magnesium 1.9 mg/dL (1.6-2.6); Total Protein 8.0 g/dL (6.5-8.0)
[2025-02-08 11:49] LABS: Resp Syncy Virus RNA Qual PCR NEGATIVE (Negative); SARS COV2 PCR INHOUSE NEGATIVE (Negative)
--- NOTE | 2025-02-08 12:32 | PC.NURSE ---
PT was seen by provider and results reviewed by provider .Pt agrees with discharge care plan
== END 2025-02-08 12:33 | disposition home or self-care (01) ==
PROVIDERS: Physician Assistant Medical; Emergency Provider Emergency Medicine; PCP Internal Medicine
DX: J10.1 Influenza due to other identified influenza virus with other respiratory manifestations (principal); R11.2 Nausea with vomiting, unspecified; R06.02 Shortness of breath; J45.909 Unspecified asthma, uncomplicated; Z79.899 Other long term (current) drug therapy
CPT/HCPCS: 80053; 83735; 84702; 85025; 87637; 99281; 99283